=== PATIENT | female | born 1975 | race Caucasian/White ===

== ENCOUNTER → 2016-08-27 | Day surgery (SDC) | payer OTHER ==
[2016-08-24 10:51] VITALS: Ht 165.1 cm; Wt 95.0 kg
[~2016-08-27] VITALS: Ht 165.1 cm; Wt 95.0 kg
[~2016-08-27] MED LIST: AMPH10TA2 PO; BUPR-79 PO; LAMO200T38 PO; LIDOCAINE HCL 2% 2 ML VIAL (20MG/ML) ONE; MIDAZOLAM HCL 1 MG/ML 2ML VIAL ONE; PROPOFOL IV EMULSION 10 MG/ML 20 ML VIAL IV ONE; SODIUM CHLORIDE 0.9% 500ML 500 ML IV ONE; SUMA100T16 PO; TOPI50TA16 PO
--- NOTE | 2016-08-27 12:30 | Endo History and Physical ---
History & Physical Date of Service: Aug 27, 2016. Chief Complaint: Rectal bleeding Referring Physician: Dr. Patti Catherine History of Present Illness Rectal Bleeding Past Medical History Seizure Disorder, Cancer, Depression Past Surgical History Hx Cardiac Surgery: No Hx Internal Defibrillator: No Hx Pacemaker: No Hx Abdominal Surgery: Yes (, AZUL, UMBILICAL HERNIA, UTERINE ALBLATION) Hx of Implantable Prosthesis: No Hx Post-Op Nausea and Vomiting: No Hx Cancer Surgery: Yes (WIDE EXCISION OF MELANOMA ON BACK X2) Hx Thoracic Surgery: No Hx Orthopedic: Yes (RT SHOULDER ARTHROSCOPY) Hx Urinary Tract Surgery: No Family History Colon CA Social History Smoking Status: Never Smoker Hx Substance Use: No Hx Alcohol Use: Yes (OCASS) Allergies Coded Allergies: No Known Allergies (Verified , 08/24/16) Current Medications Reported Home Medications Medications Dose Route/Sig Max Daily Dose Days Date Category Adderall 10MG (Amphetamine-Dextroamphetamine 10MG) 1 Tab Tab 1 Tab PO BID 30 08/27/16 Reported Lamictal (Lamotrigine) 200 Mg Tab 200 Mg PO BID 07/04/15 Reported Wellbutrin Sr (Bupropion HCl) 150 Mg Ertab 150 Mg PO BID 06/29/13 Reported Topamax (Topiramate) 50 Mg Tab 100 Mg PO HS 06/29/13 Reported Topamax (Topiramate) 50 Mg Tab 50 Mg PO QAM 06/29/13 Reported Vital Signs Weight (Kilograms): 95 Height (Feet): 5 Height (Inches): 5 Date Time Temp Pulse Resp B/P Pulse Ox O2 Delivery O2 Flow Rate FiO2 08/27/16 10:00 37 88 16 135/86 95 Room Air Physical Exam General Appearance: WD/WN, no apparent distress Respiratory/Chest: Auscultation: breath sounds normal, no wheezing, no rhonchi Cardiovascular: Heart Auscultation: RRR, no murmurs Abdomen: Inspection & Palpation: soft, no tenderness, guarding & rebound, no masses Assessment and Plan Colonoscopy today.
--- NOTE | 2016-08-27 12:31 | Discharge Instructions ---
Endoscopy Patient Instructions Date / Procedure(s) Performed Aug 27, 2016. Colonoscopy Allergy Information Coded Allergies: No Known Allergies (Verified , 08/24/16) Discharge Date / Findings Aug 27, 2016. Normal Colonoscopy Medication Instructions Restart Stopped Medication(s): Resume all medications today. Take Citrucel daily. Provider Instructions Activity Restrictions - No exercising or heavy lifting for 24 hours. - Do not drink alcohol the day of the procedure. - Do not drive a car or operate machinery until the day after the procedure. - Do not make any important decisions or sign important papers in 24 hours after the procedure. Following Day: - Return to full activity which may include returning to work/school. Diet Start your diet with liquids and light foods (jello, soup, juice, toast). Then eat your usual diet if not nauseated. Treatment For Common After Affects For mild abdominal pain, bloating, or excessive gas: - Rest - Eat lightly - Lie on right side Follow-Up Information Follow-up with Dr. Patti Catherine as scheduled Anesthesia Information What You Should Know You have had a procedure that required some medicine to reduce anxiety and discomfort. This treatment is called moderate sedation. After receiving the treatment, you may be sleepy, but you will be able to breathe on your own. The effects of the treatment may last for several hours. Follow these instructions along with Activity/Diet recommendations noted above: * Do NOT do anything where dizziness or clumsiness would be dangerous. * Rest quietly at home today, then you can be up and about tomorrow. * Have a responsible person stay with you the rest of today. * You may have had an I.V. today. If so, you may take the dressing off later today. Recommendations Call your doctor if: * Trouble breathing * Continuous vomiting for more than 24 hours * Temperature above 101 degrees * Severe abdominal pain or bloating * Pain not relieved by pain medicine ordered * There is increased drainage or redness from any incision * A large amount of rectal bleeding greater than 2-3 tablespoons. (If you had a polyp/s removed or have hemorrhoids, a small amount of blood - from the rectum is to be expected.) * You have any unanswered questions or concerns. IN THE EVENT OF A SERIOUS EMERGENCY, GO TO THE NEAREST EMERGENCY ROOM Your discharge instructions were prepared by provider Sherwin Crespo. Patient Instructions Signature Page Adrienne Garza Patient (or Guardian) Signature/Date: I have read and understand the instructions given to me by my caregivers. Caregiver/RN/Doctor Signature/Date: The above-named patient and/or guardian has received patient instructions on this date. + Original Patient Signature Page (only) stays with chart. Please make copy for patient.
[2016-08-27 12:43] VITALS: BP 141/88; PULSE 68; O2SAT 99
--- NOTE | 2016-08-27 13:06 | Anesthesiology Progress Note ---
Anesthesia Post Op Note Date & Time Aug 27, 2016 at 13:05 Vital Signs Pain Intensity: 0 Vital Signs Past 12 Hours Date Time Temp Pulse Resp B/P Pulse Ox O2 Delivery O2 Flow Rate FiO2 08/27/16 12:43 68 16 141/88 99 Room Air 08/27/16 12:27 68 16 142/84 99 Room Air 08/27/16 12:12 69 16 142/81 99 Room Air 08/27/16 10:00 37 88 16 135/86 95 Room Air Notes Mental Status: alert / awake / arousable, participated in evaluation Pt Amnestic to Procedure: Yes Nausea / Vomiting: adequately controlled Pain: adequately controlled Airway Patency, RR, SpO2: stable & adequate BP & HR: stable & adequate Hydration State: stable & adequate Anesthetic Complications: no major complications apparent
--- NOTE | 2016-08-27 15:07 | GI REPORT ---
Procedure Date: 08/27/2016 11:52 AM Procedure: Colonoscopy Indications: Rectal bleeding Medicines: Monitored Anesthesia Care Complications: No immediate complications. Estimated blood loss: None. Estimated Blood Loss: Estimated blood loss: none. Procedure: Pre-Anesthesia Assessment: - Prior to the procedure, a History and Physical was performed, and patient medications, allergies and sensitivities were reviewed. The patient's tolerance of previous anesthesia was reviewed. - ASA Grade Assessment: III - A patient with severe systemic disease. After I obtained informed consent, the scope was passed under direct vision. Throughout the procedure, the patient's blood pressure, pulse, and oxygen saturations were monitored continuously. The On-site loaner was introduced through the anus and advanced to the terminal ileum, with identification of the appendiceal orifice and IC valve. The colonoscopy was performed with ease. The patient tolerated the procedure well. The quality of the bowel preparation was excellent. The bowel preparation used was split dose MIralax. Findings: The entire examined colon appeared normal. Impression: - The entire examined colon is normal to the terminal ileum with retroflexed views of the colon and terminal ileum. - No specimens collected. Recommendation: - Repeat colonoscopy in 10 years for screening purposes. - Discharge patient to home (with escort). Sherwin Crespo M.D. Sherwin Crespo MD 08/27/2016 12:20:35 PM This report has been signed electronically. Note Initiated On: 08/27/2016 11:52 AM I attest to the content of the Intraoperative Record and orders documented therein, exceptions below
== END | disposition home or self-care (01) ==
LOC: C.GI 09:40
PROVIDERS: ATTEND Internal Medicine Gastroenterology
DX: K62.5 Hemorrhage of anus and rectum (principal); F32.9 Major depressive disorder, single episode, unspecified; Z98.890 Other specified postprocedural states; G40.909 Epilepsy, unspecified, not intractable, without status epilepticus

== ENCOUNTER 2016-09-18 14:44 | Observation (INO) | payer OTHER ==
[~2016-09-18] VITALS: Ht 165.1 cm; Wt 96.1 kg
[~2016-09-18 14:44] MED LIST changes: -LIDOCAINE HCL 2% 2 ML VIAL (20MG/ML) ONE; -MIDAZOLAM HCL 1 MG/ML 2ML VIAL ONE; -PROPOFOL IV EMULSION 10 MG/ML 20 ML VIAL IV ONE; -SODIUM CHLORIDE 0.9% 500ML 500 ML IV ONE; -SUMA100T16 PO
[2016-09-18] MEDS ORDERED: ALUMINUM/MAGNESIUM SUSP 30 ML UDC PO STA (15:04)
[2016-09-18] MEDS ORDERED: SODIUM CHLORIDE 0.9% 1000ML 1,000 ML IV STA ×2 (15:04→19:32)
[2016-09-18] MEDS ORDERED: ONDANSETRON INJ 2 MG/ML 2 ML VIAL IV STA (15:04)
--- NOTE | 2016-09-18 15:22 | EMERGENCY ROOM VISIT NOTE ---
History Report prepared by Arnold: Chelita Willoughby Under the Supervision of: Dr. Sherwin Alvarez D.O. First contact with patient: 14:54 Chief Complaint: ABDOMINAL PAIN Stated Complaint: ABD PAIN/ DIZZINESS History of Present Illness The patient is a 41 year old female who presents to the Emergency Room via EMS with complaints of severe but improved epigastric abdominal pain starting a few minutes ago. She works at an [employer] office where she had a sudden onset of her pain. She was severely diaphoretic and lightheaded. She was given Aspirin and Nitro at her workplace. She was also given Zofran by EMS in route to the Emergency Room. She denies chest pain, shortness of breath, lower abdominal pain , pain radiation to back, blood in urine/stool, urinary symptoms, or any other complaints. She had a colonoscopy a few days ago for blood in stool. She no longer has any blood in stool. She has a history of cholecystectomy. She has a family history myocardial infarction. Source of History: patient Onset: a few minutes ago Position: abdomen (epigastric) Symptom Intensity: severe Timing: other (improved) Modifying Factors (Relieving): other (Aspirin, Nitro, Zofran) Associated Symptoms: No SOB, No abdominal pain, No chest pain, No urinary symptoms Review of Systems See HPI for pertinent positives & negatives. A total of 10 systems reviewed and were otherwise negative. Past Medical & Surgical Medical Problems: (1) Chest pain (2) Migraines (3) Wide excision of melanoma Surgical Problems: (1) History of cholecystectomy (2) History of hernia repair Family History FHx: cancer FHx: diabetes FHx: gallbladder disease FHx: heart disease FHx: hypertension FHx: kidney disease/stones Social History Smoking Status: Never Smoker Alcohol Use: none Drug Use: none Marital Status: Housing Status: lives with family Occupation Status: employed Current/Historical Medications Scheduled Amphetamine-Dextroamphetamine 10MG (Adderall 10MG), 1 TAB PO BID Bupropion (Wellbutrin Sr), 150 MG PO BID Lamotrigine (Lamictal), 200 MG PO BID Sumatriptan Succinate (Imitrex), 100 MG PO PRN Topiramate (Topamax), 50 MG PO QAM Topiramate (Topamax), 100 MG PO HS Allergies Coded Allergies: No Known Allergies (Verified , 08/24/16) Physical Exam Vital Signs Date Time Temp Pulse Resp B/P Pulse Ox O2 Delivery O2 Flow Rate FiO2 09/18/16 20:49 76 18 132/86 96 Room Air 09/18/16 20:37 98 Room Air 09/18/16 18:57 72 18 132/82 98 Room Air 09/18/16 17:14 72 16 121/75 96 Room Air 09/18/16 15:29 72 19 09/18/16 15:28 112/82 09/18/16 15:14 71 14 96 09/18/16 15:00 81 09/18/16 14:53 116/87 09/18/16 14:51 36.4 72 14 116/87 95 Room Air Physical Exam GENERAL: Patient is awake, alert, and in no acute distress. Patient is resting comfortably and showing no signs of anxiety EYES: The conjunctivae are clear. The pupils are round and reactive. EARS, NOSE, MOUTH AND THROAT: The nose is without any evidence of any deformity. Mucous membranes are moist tongue is midline NECK: The neck is nontender and supple. RESPIRATORY: Normal respiratory effort is noted there is no evidence of wheezing rhonchi or rales CARDIOVASCULAR: Regular rate and rhythm noted there no murmurs rubs or gallops normal S1 normal S2 GASTROINTESTINAL: The abdomen is soft. Bowel sounds are present in all quadrants. Significant tenderness in the right upper quadrant of abdomen. There is no specific guarding or rigidity noted. MUSCULOSKELETAL/EXTREMITIES: There is no evidence of gross deformity full range of motion is noted in the hips and shoulders SKIN: There is no obvious evidence of any rash. There are no petechiae, pallor or cyanosis noted. NEUROLOGIC: Patient is awake alert and oriented x3 Medical Decision & Procedures ER Provider Diagnostic Interpretation: CT the abdomen and pelvis was obtained in the emergency Department CT ABD/PELVIS IV AND ORAL CONT CLINICAL HISTORY: Upper abdominal pain COMPARISON STUDY: 04/06/2016 TECHNIQUE: Following the IV administration of 115 mL of Optiray-320, CT scan of the abdomen and pelvis was performed from the lung bases to the proximal femurs. Images are reviewed in the axial, sagittal, and coronal planes. IV contrast was administered without complication. CT DOSE: 873.53 mGy.cm FINDINGS: Lower chest: The heart is normal in size and configuration, without pericardial effusion. The lung bases and pleural spaces are clear. Liver: The contrast-enhanced liver is normal in size, contour, and attenuation. There is no intrahepatic biliary ductal dilatation. The hepatic veins and portal veins are patent. Gallbladder: Surgically absent Spleen: Normal in size and attenuation. Pancreas: Unremarkable. Adrenal glands: Unremarkable. Kidneys: No solid renal masses are visualized. There are nonobstructing lower pole left renal calculi measuring up to 3 mm in diameter. There is a 4 mm right renal hypodensity, likely representing a cyst. Bowel: There are no transition zones indicate bowel obstruction. The appendix is normal. There is no acute diverticulitis. There is minimal bowel wall thickening involving multiple small bowel loops consistent with a mild nonspecific enteritis. Peritoneum: No free air is visualized. There is low volume ascites. Vasculature: The abdominal aorta is normal in course and caliber. Adenopathy: None. Pelvic viscera: The bladder, and pelvic viscera are unremarkable. Skeletal structures: There is bilateral L5 spondylolysis IMPRESSION: 1. No evidence of bowel obstruction. No evidence of free air 2. Surgically absent gallbladder 3. Left-sided nephrolithiasis 4. Mild small bowel wall thickening consistent with a nonspecific enteritis 5. Low volume ascites 6. Normal appendix Electronically signed by: Lamberto Colorado M.D. 09/18/2016 7:24 PM Dictated Date/Time: 09/18/2016 7:20 PM Plan x-rays of the chest abdomen and pelvis were obtained in the emergency department. ABDOMEN 2VIEW W/PA CHEST RTN CLINICAL HISTORY: Generalized abdominal pain COMPARISON STUDY: Chest x-ray dated 02/13/2013 FINDINGS: The erect chest reveals no free intraperitoneal air. There is no focal pulmonary consolidation. Erect and supine views the abdomen reveal surgical clips within the right upper quadrant consistent with a prior cholecystectomy. There are scattered colonic air-fluid levels. There are no transition zones indicate bowel obstruction. There is a suspected 2 mm lower pole left renal calculus. There is a right pelvic basin calcification, likely representing a phlebolith. IMPRESSION: 1. Scattered colonic air-fluid levels 2. No evidence of bowel obstruction. No evidence of free air 3. Left-sided nephrolithiasis Electronically signed by: Lamberto Colorado M.D. 09/18/2016 4:22 PM Dictated Date/Time: 09/18/2016 4:20 PM Ultrasound of the right upper quadrant was obtained in the emergency department. The report was reviewed. BILIARY ULTRASOUND CLINICAL HISTORY: Right-sided abdominal pain COMPARISON STUDY: CT scan dated 04/06/2016 FINDINGS: The pancreas appears sonographically normal. The gallbladder is surgically absent. There is no ductal dilatation. The common bile duct measures 5 mm. No focal hepatic masses are visualized. There is slight increased hepatic echogenicity. Mild hepatic steatosis cannot be excluded. There is no right-sided hydronephrosis. IMPRESSION: 1. Surgically absent gallbladder 2. No pancreatic or hepatic masses identified 3. No ductal dilatation. Electronically signed by: Lamberto Colorado M.D. 09/18/2016 4:11 PM Dictated Date/Time: 09/18/2016 4:10 PM Laboratory Results Test 09/18/16 15:26 09/18/16 17:45 Prothrombin Time 10.4 SECONDS (9.0-12.0) Prothromb Time International Ratio 1.0 (0.9-1.1) Activated Partial Thromboplast Time 22.2 SECONDS (21.0-31.0) Partial Thromboplastin Ratio 0.9 Magnesium Level 2.3 mg/dl (1.8-2.4) Total Bilirubin 0.4 mg/dl (0.2-1) Direct Bilirubin < 0.1 mg/dl (0-0.2) Aspartate Amino Transf (AST/SGOT) 15 U/L (15-37) Alanine Aminotransferase (ALT/SGPT) 23 U/L (12-78) Alkaline Phosphatase 96 U/L (45-117) Total Protein 7.4 gm/dl (6.4-8.2) Albumin 4.0 gm/dl (3.4-5.0) Lipase 117 U/L (73-393) Thyroid Stimulating Hormone (TSH) 1.750 uIu/ml (0.300-4.500) Human Chorionic Gonadotropin, Qual NEG (NEG) Urine Color DK YELLOW Urine Appearance CLEAR (CLEAR) Urine pH 6.0 (4.5-7.5) Urine Specific [place] 1.029 (1.000-1.030) Urine Protein NEG (NEG) Urine Glucose (UA) NEG (NEG) Urine Ketones TRACE (NEG) Urine Occult Blood 1+ (NEG) Urine Nitrite NEG (NEG) Urine Bilirubin NEG (NEG) Urine Urobilinogen NEG (NEG) Urine Leukocyte Esterase TRACE (NEG) Urine WBC (Auto) 5-10 /hpf (0-5) Urine RBC (Auto) 0-4 /hpf (0-4) Urine Hyaline Casts (Auto) 5-10 /lpf (0-5) Urine Epithelial Cells (Auto) >30 /lpf (0-5) Urine Bacteria (Auto) NEG (NEG) Medications Administered Medications (Trade) Dose Ordered Sig/Ugo Route Start Time Stop Time Status Last Admin Dose Admin Al Hydroxide/Mg Hydroxide 30 ml 30 ml NOW STAT PO 09/18/16 15:04 09/18/16 15:06 DC 09/18/16 15:13 30 ML Sodium Chloride (Nss 1000ml) 1,000 ml @ 999 mls/hr Q1H1M STAT IV 09/18/16 15:04 09/18/16 16:04 DC 09/18/16 15:16 999 MLS/HR Ondansetron HCl 4 mg 4 mg NOW STAT IV 09/18/16 15:04 09/18/16 15:06 DC 09/18/16 15:13 4 MG Pantoprazole Sodium 40 mg/ Syringe 10 ml @ 5 mls/min NOW ONCE IV 09/18/16 19:45 09/18/16 19:46 DC 09/18/16 19:56 5 MLS/MIN Sodium Chloride (Nss 1000ml) 1,000 ml @ 250 mls/hr Q4H STAT IV 09/18/16 19:32 09/18/16 20:00 DC 09/18/16 19:57 250 MLS/HR Potassium Chloride 40 meq 40 meq NOW STAT PO 09/18/16 19:57 09/18/16 19:59 DC 09/18/16 20:07 40 MEQ Lactated Ringer's (Lr 1000ml) 1,000 ml @ 200 mls/hr Q5H IV 09/18/16 20:00 09/18/16 21:47 DC 09/18/16 20:08 200 MLS/HR ECG Indication: abdominal pain Rate (beats per minute): 75 Rhythm: normal sinus Findings: T-wave inversion (Anterior), no ectopy Comparison ECG Date: February 13, 2013 Change: no significant change ED Course 1454: The patient was evaluated in room C06. A complete history and physical examination were performed. Medical Decision Prior records/ancillary studies reviewed. Triage Nursing notes reviewed. The patient's history was concerning for abdominal pain. Differential diagnosis: Etiologies such as appendicitis, diverticulitis, PUD, biliary pathology, UTI, pancreatitis, obstruction, mesenteric ischemia, aortic pathology, infections, inflammatory bowel disease, renal colic, as well as others were entertained. The patient is a 41-year-old female who presented to the emergency department for evaluation of chest pain and epigastric pain. The patient had an acute onset of epigastric pain while she was at work. She was very diaphoretic with the onset of the pain in her colleagues thought that she was having an acute coronary event. She was given aspirin and nitroglycerin prior to arrival. She arrived to the emergency Department significantly improved but she appeared to have reproducible pain in the epigastric region in the right upper quadrant. The patient was treated with IV fluids and IV antiemetics. She was also given Maalox and ordered Protonix in the emergency department. She did not wish to have any pain medication. She was reevaluated multiple times. The patient was found have an elevated white blood cell count. Her x-rays and ultrasound did not reveal definite cause for her discomfort so a CT the abdomen and pelvis was ordered. I discussed the patient's laboratory and radiographic studies with her. Given her elevated white blood cell count I'm not comfortable with her following up as an outpatient for this reason I discussed her case with the on- call [facility] hospitalist group. They've agreed to evaluate the patient in the emergency department for further management and disposition. Consults Time Called: 1934 Consulting Physician: Dr Robert Parks Hospitalist Returned Call: 1939 Impression Primary Impression: Epigastric abdominal pain Additional Impressions: Elevated white blood cell count Ascites Scribe Attestation The scribe's documentation has been prepared under my direction and personally reviewed by me in its entirety. I confirm that the note above accurately reflects all work, treatment, procedures, and medical decision making performed by me. Departure Information Referrals Patti Catherine D.O. (PCP) Patient Instructions [facility] Problem Qualifiers Additional Impressions: Elevated white blood cell count Leukocytosis type: unspecified Qualified Codes: D72.829 - Elevated white blood cell count, unspecified Ascites Ascites type: other type Qualified Codes: R18.8 - Other ascites
[2016-09-18 15:58] LABS: PARTIAL THROMBOPLASTIN RATIO 0.9; PROTHROMBIN TIME (PATIENT) 10.4 SECONDS (9.0-12.0)
[2016-09-18] MEDS ORDERED: SUMA100T16 PO (16:00)
[2016-09-18 16:01] LABS: BLOOD UREA NITROGEN 11 mg/dl (7-18); CALCIUM 9.2 mg/dl (8.5-10.1); CARBON DIOXIDE 23 mmol/L (21-32); CHLORIDE 106 mmol/L (98-107); GLUCOSE 98 mg/dl (70-99); POTASSIUM 3.1 mmol/L (3.5-5.1); SODIUM 140 mmol/L (136-145)
[2016-09-18 16:06] LABS: ALKALINE PHOSPHATASE 96 U/L (45-117); ALT/SGPT 23 U/L (12-78); AST/SGOT 15 U/L (15-37)
--- NOTE | 2016-09-18 16:13 | DIAGNOSTIC IMAGING REPORT ---
BILIARY ULTRASOUND CLINICAL HISTORY: Right-sided abdominal pain COMPARISON STUDY: CT scan dated 04/06/2016 FINDINGS: The pancreas appears sonographically normal. The gallbladder is surgically absent. There is no ductal dilatation. The common bile duct measures 5 mm. No focal hepatic masses are visualized. There is slight increased hepatic echogenicity. Mild hepatic steatosis cannot be excluded. There is no right-sided hydronephrosis. IMPRESSION: 1. Surgically absent gallbladder 2. No pancreatic or hepatic masses identified 3. No ductal dilatation. Electronically signed by: Lamberto Colorado M.D. 09/18/2016 4:11 PM Dictated Date/Time: 09/18/2016 4:10 PM
[2016-09-18 16:19] LABS: PREG INTERNAL NEGATIVE QC NEG CLEAR BACKGROUND; PREG INTERNAL POSITIVE QC POS CONTROL LINE
--- NOTE | 2016-09-18 16:23 | DIAGNOSTIC IMAGING REPORT ---
ABDOMEN 2VIEW W/PA CHEST RTN CLINICAL HISTORY: Generalized abdominal pain COMPARISON STUDY: Chest x-ray dated 02/13/2013 FINDINGS: The erect chest reveals no free intraperitoneal air. There is no focal pulmonary consolidation. Erect and supine views the abdomen reveal surgical clips within the right upper quadrant consistent with a prior cholecystectomy. There are scattered colonic air-fluid levels. There are no transition zones indicate bowel obstruction. There is a suspected 2 mm lower pole left renal calculus. There is a right pelvic basin calcification, likely representing a phlebolith. IMPRESSION: 1. Scattered colonic air-fluid levels 2. No evidence of bowel obstruction. No evidence of free air 3. Left-sided nephrolithiasis Electronically signed by: Lamberto Colorado M.D. 09/18/2016 4:22 PM Dictated Date/Time: 09/18/2016 4:20 PM
[2016-09-18 17:08] LABS: BASO ABS # 0.01 K/uL (0-0.2); COMPLETE YES; EOS % 0.3 %; HEMATOCRIT 45.8 % (37-47); IG% 0.3 %; LYMPH % 7.2 %; LYMPH ABS # 1.66 K/uL (1.2-3.4); MEAN CELL VOLUME 90.9 fL (80-100); MEAN CORPUSCULAR HEMOGLOBIN 31.2 pg (25-34); MEAN CORPUSCULAR HGB CONC 34.3 g/dl (32-36); MEAN PLATELET VOLUME 8.8 fL (7.4-10.4); MONO % 6.2 %; PLATELET COUNT 284 K/uL (130-400); RED BLOOD COUNT 5.04 M/uL (4.2-5.4); WHITE BLOOD COUNT 23.04 K/uL (4.8-10.8)
[2016-09-18] MEDS ORDERED: OPTIRAY 320 IV PRN (17:30)
[2016-09-18 18:07] LABS: URINE APPEARANCE CLEAR (CLEAR); URINE COLOR DK YELLOW; URINE EPITHELIAL CELL AUTO >30 /lpf (0-5); URINE NITRITE NEG (NEG); URINE SPECIFIC GRAVITY 1.029 (1.000-1.030); UROBILINOGEN NEG (NEG)
[2016-09-18 18:12] LABS: MANUAL MICROSCOPIC REQUIRED? NO; REVIEW REQ? NO; URINE BILIRUBIN NEG (NEG)
--- NOTE | 2016-09-18 19:25 | DIAGNOSTIC IMAGING REPORT ---
CT ABD/PELVIS IV AND ORAL CONT CLINICAL HISTORY: Upper abdominal pain COMPARISON STUDY: 04/06/2016 TECHNIQUE: Following the IV administration of 115 mL of Optiray-320, CT scan of the abdomen and pelvis was performed from the lung bases to the proximal femurs. Images are reviewed in the axial, sagittal, and coronal planes. IV contrast was administered without complication. CT DOSE: 873.53 mGy.cm FINDINGS: Lower chest: The heart is normal in size and configuration, without pericardial effusion. The lung bases and pleural spaces are clear. Liver: The contrast-enhanced liver is normal in size, contour, and attenuation. There is no intrahepatic biliary ductal dilatation. The hepatic veins and portal veins are patent. Gallbladder: Surgically absent Spleen: Normal in size and attenuation. Pancreas: Unremarkable. Adrenal glands: Unremarkable. Kidneys: No solid renal masses are visualized. There are nonobstructing lower pole left renal calculi measuring up to 3 mm in diameter. There is a 4 mm right renal hypodensity, likely representing a cyst. Bowel: There are no transition zones indicate bowel obstruction. The appendix is normal. There is no acute diverticulitis. There is minimal bowel wall thickening involving multiple small bowel loops consistent with a mild nonspecific enteritis. Peritoneum: No free air is visualized. There is low volume ascites. Vasculature: The abdominal aorta is normal in course and caliber. Adenopathy: None. Pelvic viscera: The bladder, and pelvic viscera are unremarkable. Skeletal structures: There is bilateral L5 spondylolysis IMPRESSION: 1. No evidence of bowel obstruction. No evidence of free air 2. Surgically absent gallbladder 3. Left-sided nephrolithiasis 4. Mild small bowel wall thickening consistent with a nonspecific enteritis 5. Low volume ascites 6. Normal appendix Electronically signed by: Lamberto Colorado M.D. 09/18/2016 7:24 PM Dictated Date/Time: 09/18/2016 7:20 PM
[2016-09-18] MEDS ORDERED: PANTOprazole INJ 40 MG in SYRINGE 0 ML IV ONE (19:45)
[2016-09-18] MEDS ORDERED: POTASSIUM CHLORIDE 10 MEQ TABCR PO STA (19:57)
[2016-09-18] MEDS ORDERED: LACTATED RINGER'S 1000ML 1,000 ML IV SCH (20:00)
[2016-09-18 20:24] LABS: MAGNESIUM 2.3 mg/dl (1.8-2.4)
[2016-09-18 20:37] VITALS: O2SAT 98; Ht 165.1 cm; Wt 96.1 kg
[2016-09-18] MEDS ORDERED: BuPROPion SR 150 MG TABCR PO ONE (21:42)
[2016-09-18] MEDS ORDERED: TOPIRAMATE 100 MG TAB PO ONE (21:42)
[2016-09-18 21:44] VITALS: O2SAT 96
[2016-09-18] MEDS ORDERED: ACETAMINOPHEN 325 MG TAB PO PRN (21:45)
[2016-09-18] MEDS ORDERED: PROMETHAZINE HCL INJ 12.5 MG in SODIUM CHLORIDE 0.9% 50ML 50 ML IV PRN (21:45)
[2016-09-18] MEDS ORDERED: NITROGLYCERIN 0.4 MG SL PER TAB CHARGE SL PRN (21:45)
[2016-09-18] MEDS ORDERED: LACTATED RINGER'S 1000ML 1,000 ML IV ONE (21:45)
[2016-09-18 22:10] VITALS: BP 128/86; PULSE 74; TEMP 36.7; O2SAT 95
[2016-09-18] MEDS ORDERED: IV FLUIDS COMPLETED PRN (23:15)
[2016-09-19] MEDS ORDERED: CALCIUM CARBONATE 500 MG CHEWABLE PO PRN (02:45)
[2016-09-19] MEDS ORDERED: LACTATED RINGER'S 1000ML 1,000 ML IV ONE (03:00)
[2016-09-19 03:21] VITALS: BP 118/80; PULSE 69; TEMP 36.6; O2SAT 98
[2016-09-19 06:01] LABS: BASO % 0.1 %; BASO ABS # 0.01 K/uL (0-0.2); COMPLETE YES; IG% 0.3 %; LYMPH % 34.4 %; LYMPH ABS # 2.38 K/uL (1.2-3.4); MEAN CELL VOLUME 92.6 fL (80-100); MEAN CORPUSCULAR HEMOGLOBIN 31.1 pg (25-34); MEAN CORPUSCULAR HGB CONC 33.6 g/dl (32-36); MEAN PLATELET VOLUME 9.1 fL (7.4-10.4); MONO % 7.2 %; PLATELET COUNT 262 K/uL (130-400); RED BLOOD COUNT 4.21 M/uL (4.2-5.4); WHITE BLOOD COUNT 6.92 K/uL (4.8-10.8)
[2016-09-19 06:31] LABS: BLOOD UREA NITROGEN 8 mg/dl (7-18); BUN/CREATININE RATIO 8.2 (10-20); CARBON DIOXIDE 25 mmol/L (21-32); CHLORIDE 112 mmol/L (98-107); CREATININE 0.92 mg/dl (0.60-1.20); GLUCOSE 70 mg/dl (70-99); POTASSIUM 3.8 mmol/L (3.5-5.1); SODIUM 143 mmol/L (136-145)
[2016-09-19 08:19] VITALS: BP 110/72; PULSE 70; TEMP 36.8; O2SAT 99
[2016-09-19] MEDS: BuPROPion SR 150 MG TABCR PO SCH ×2 (08:21→20:24)
[2016-09-19] MEDS: TOPIRAMATE 25 MG TAB PO SCH (08:21)
[2016-09-19] MEDS: AMPHETAMINE ASP/SULF/DEXTRAMPH 10 MG TAB PO SCH ×2 (08:22→20:33)
[2016-09-19] MEDS: OXYCODONE/ACETAMINOPHEN 5-325 TAB PO PRN ×3 (08:27→20:22)
--- NOTE | 2016-09-19 10:25 | HISTORY & PHYSICAL EXAMINATION ---
DATE OF ADMISSION: 09/18/2016 PRIMARY CARE DOCTOR: Dr. Catherine. Hx obtained from px and records. CHIEF COMPLAINT: Chest pain, abdominal pain. HISTORY OF PRESENT ILLNESS: Medical history significant for migraine, seizure disorder, history of intracranial hemorrhage sp surgery, melanoma sp surgery, restless legs syndrome, anxiety, mood disorder, endometriosis. Recent confinement 2011 for syncope, cellulitis, left foot. Patient was at work at the [employer] [employer] [facility] [place] [employer] [facility] yesterday when she had achy epigastric discomfort going to her chest. Ham sandwich for lunch. She could not breathe, some nausea. no emesis. Some relief with Aspirin and Nitroglycerin given at the office. Px comfortable after GI cocktail given in the ER. Loose stools noted at the ER. MEDICAL HISTORY: As above. SURGERIES: gynecologic procedure, shoulder surgery, tonsillectomy, dental surgery, cholecystectomy, section, hernia repair, melanoma surgery, breast procedure, craniotomy. HOME MEDICATIONS: Include sumatriptan, Adderall. lamictal, topamax. ALLERGIES: No known drug allergies. FAMILY HISTORY: Heart disease. PERSONAL AND SOCIAL HISTORY: Nonsmoker. no ETOH intake, [employer] clinic nurse. REVIEW OF SYSTEMS: As per HPI, all other ROS negative. PHYSICAL EXAMINATION: VITAL SIGNS: Blood pressure was noted to be 130/86, pulse 90, respiratory rate 18 T 37 O2 sats 98RA. GENERAL: Slightly anxious, obese, no respiratory distress. SKIN: Normal color. HEENT: [place] palpebral conjunctivae. Dry mucosa. NECK: No JVD. supple CHEST: Clear to auscultation. HEART: Regular rate and rhythm. ABDOMEN: Minimal epigastric tenderness. EXTREMITIES: No edema. no tenderness NEUROLOGIC: No gross focality. LABS: white cell count 23, hemoglobin 15, platelets 284. Sodium 140, potassium 3.1, chloride 106, CO2 of 28, BUN 11, creatinine 1.2. LFTs, lipase normal. trop 0 CT abdomen and pelvis showed enteritis. Chest/abd x-ray showed no infiltrate, no bowel obstruction. Gallbladder ultrasound absent gallbladder. EKG TWI septal leads. ASSESSMENT: 1. Atypical chest pain likely secondary to GI upset. ro ACS 2. diarrhea poss 2 to PO contrast intake ro cdif 3. History of intracranial hemorrhage sp surgery 4. seizure disorder, stable on medications 5. attention deficit post ICH on Adderall 6. mood disorder. stable on meds 7. Hypokalemia secondary to gastrointestinal upset/diarrhea PLAN: Observation PCU. Follow troponin. 2-D echo. re cp Antacid p.r.n. stool cdif Replace potassium. Home in AM if patient comfortable and espino unremarkable. DVT prophylaxis, SCDs. RE hx ICH Full code. MTDD
[2016-09-19 12:49] VITALS: BP 125/84; PULSE 78; TEMP 36.8; O2SAT 96
[2016-09-19] MEDS: ONDANSETRON INJ 2 MG/ML 2 ML VIAL IV PRN ×2 (13:53→20:22)
[2016-09-19 15:51] VITALS: BP 118/78; PULSE 71; TEMP 36.9; O2SAT 97
[2016-09-19] MEDS ORDERED: NURSING VERBAL MED ORDER ONE (18:30)
[2016-09-19] MEDS: MoRPHine SULFATE 4 MG/ML 1 ML CARP\\VIAL IV PRN ×2 (18:44→23:19)
[2016-09-19] MEDS ORDERED: LACTATED RINGER'S 1000ML 1,000 ML IV SCH (18:45)
[2016-09-19 19:20] VITALS: BP 107/70; PULSE 76; TEMP 36.7; O2SAT 97
--- NOTE | 2016-09-19 19:57 | Progress Note ---
Medicine Progress Note Date & Time of Visit: Sep 19, 2016 at 19:43. Subjective Pt was seen and examined Lying in bed with no distress Pt said that she is having tenderness in her abdomen she also said that she is having headache she does not have any chest pain Pt is very anxious denies any sob, palpitation, dizziness Objective Last 8 Hrs Date Time Temp Pulse Resp B/P Pulse Ox O2 Delivery O2 Flow Rate FiO2 09/19/16 16:02 Room Air 09/19/16 15:51 36.9 71 18 118/78 97 Room Air 09/19/16 12:49 36.8 78 18 125/84 96 Room Air 09/19/16 12:05 Room Air Physical Exam: General- No acute distress Head- atraumatic Eyes- PERRL, EOMI ENT- oropharynx clear Neck- supple, no JVD Lungs- clear to auscultation, no wheezing Heart- regular rhythm; no murmur Abdomen- normal bowel sounds, soft, +tender with palpation Extremities- no calf tenderness Neuro- alert, oriented x 3; PERRL, EOMI; no facial palsy; no dysarthria Skin- warm & dry Laboratory Results: Last 24 Hours Test 09/18/16 20:31 09/19/16 05:05 Troponin I < 0.015 ng/ml < 0.015 ng/ml White Blood Count 6.92 K/uL Red Blood Count 4.21 M/uL Hemoglobin 13.1 g/dL Hematocrit 39.0 % Mean Corpuscular Volume 92.6 fL Mean Corpuscular Hemoglobin 31.1 pg Mean Corpuscular Hemoglobin Concent 33.6 g/dl Platelet Count 262 K/uL Mean Platelet Volume 9.1 fL Neutrophils (%) (Auto) 56.0 % Lymphocytes (%) (Auto) 34.4 % Monocytes (%) (Auto) 7.2 % Eosinophils (%) (Auto) 2.0 % Basophils (%) (Auto) 0.1 % Neutrophils # (Auto) 3.87 K/uL Lymphocytes # (Auto) 2.38 K/uL Monocytes # (Auto) 0.50 K/uL Eosinophils # (Auto) 0.14 K/uL Basophils # (Auto) 0.01 K/uL RDW Standard Deviation 45.2 fL RDW Coefficient of Variation 13.4 % Immature Granulocyte % (Auto) 0.3 % Immature Granulocyte # (Auto) 0.02 K/uL Sodium Level 143 mmol/L Potassium Level 3.8 mmol/L Chloride Level 112 mmol/L Carbon Dioxide Level 25 mmol/L Anion Gap 6.0 mmol/L Blood Urea Nitrogen 8 mg/dl Creatinine 0.92 mg/dl Est Creatinine Clear Calc Drug Dose 93.6 ml/min Estimated GFR () 90.3 Estimated GFR (Non- 77.9 BUN/Creatinine Ratio 8.2 Random Glucose 70 mg/dl Calcium Level 8.0 mg/dl Assessment & Plan Chest pain Mostly atypical possible related to GI etiology All 3 sets of troponin negative No chest pain currently Echo-pending Headache hx of intracranial hemorrhage s/p surgery will get a CT head without contrast Diarrhea Possible related to contrast resolved Hypokalemia possible related to diarrhea K 3.8 monitor bmp Leukocytosis WBC on admission 23K mostly reactive WBC trending to 6K today (normal) CT abd showed Mild small bowel wall thickening consistent with a nonspecific enteritis CXR negative Urine cx negative Seizure disorder no seizure activities stable on medications Attention deficit post ICH on Adderall Mood disorder. stable Current Inpatient Medications: Current Inpatient Medications Medications (Trade) Dose Ordered Sig/Ugo Route Start Time Stop Time Status Last Admin Dose Admin Ioversol (Optiray 320) 100 ml UD PRN IV 09/18/16 17:30 09/22/16 17:29 Acetaminophen (Tylenol Tab) 650 mg Q4H PRN PO 09/18/16 21:45 10/18/16 21:44 Nitroglycerin (Nitrostat Tab) 0.4 mg UD PRN SL 09/18/16 21:45 10/18/16 21:44 Ondansetron HCl 4 mg 4 mg Q6H PRN IV 09/18/16 21:45 10/18/16 21:44 09/19/16 13:53 4 MG Promethazine HCl/ Sodium Chloride (Phenergan Inj/ Nss 50ml) 50.5 ml @ 204 mls/hr Q6H PRN IV 09/18/16 21:45 10/18/16 21:44 Oxycodone/ Acetaminophen (Percocet 5-325mg Tab) 1 tab Q6H PRN PO 09/18/16 21:45 10/02/16 21:44 09/19/16 13:54 1 TAB Morphine Sulfate (MoRPHine SULFATE INJ) 4 mg Q3H PRN IV 09/18/16 21:45 10/02/16 21:44 09/19/16 18:44 4 MG Bupropion HCl (Wellbutrin-Sr Tab) 150 mg BID PO 09/19/16 09:00 10/19/16 08:59 09/19/16 08:21 150 MG Lamotrigine (Lamictal Tab) 200 mg BID PO 09/19/16 09:00 10/19/16 08:59 09/19/16 08:22 200 MG Topiramate (Topamax Tab) 50 mg QAM PO 09/19/16 09:00 10/19/16 08:59 09/19/16 08:21 50 MG Topiramate (Topamax Tab) 100 mg HS PO 09/19/16 21:00 10/19/16 20:59 Amphetamine Aspartate/ Amphetam Sulf (Amphetamine Aspartate/Amph Sulf/Dextramphet) 10 mg BID PO 09/19/16 09:00 10/19/16 08:59 Miscellaneous (Iv Fluids Completed) 1 ea PRN PRN N/A 09/18/16 23:15 09/18/17 23:14 Calcium Carbonate 500 mg 500 mg Q6H PRN PO 09/19/16 02:45 10/19/16 02:44 Lactated Ringer's (Lr 1000ml) 1,000 ml @ 75 mls/hr [id number] IV 09/19/16 18:45 10/19/16 18:44 09/19/16 18:54 75 MLS/HR
--- NOTE | 2016-09-19 20:34 | DIAGNOSTIC IMAGING REPORT ---
CT OF THE HEAD WITHOUT CONTRAST CLINICAL HISTORY: Headache. History of intracranial hemorrhage and melanoma. COMPARISON STUDY: Head CT and MRI of the brain June 29, 2013. CT DOSE: 537.48 mGy.cm TECHNIQUE: Helical axial images of the head were obtained without IV contrast. Automated exposure control was utilized for the study. FINDINGS: There are findings consistent with an interval right sided craniotomy. No acute intracranial hemorrhage, midline shift or mass effect is present. Ventricular system is normal. Basilar cisterns are patent. There are no extra-axial collections. Ortiz-white differentiation is maintained. There are no findings to suggest acute dural sinus thrombosis or acute territorial infarct. No calvarial fracture is identified. Visualized portions of the sinuses and mastoid air cells are clear. IMPRESSION: No acute intracranial findings. Electronically signed by: Radhames Simms M.D. 09/19/2016 8:32 PM Dictated Date/Time: 09/19/2016 8:28 PM
[2016-09-19] MEDS ORDERED: TOPIRAMATE 100 MG TAB PO SCH (21:00)
[2016-09-19 23:31] VITALS: BP 109/64; PULSE 74; TEMP 36.7; O2SAT 96
[2016-09-20 04:00] VITALS: BP 97/60; PULSE 69; TEMP 36.5; O2SAT 98
[2016-09-20] MEDS: MoRPHine SULFATE 4 MG/ML 1 ML CARP\\VIAL IV PRN (04:33)
[2016-09-20 06:41] LABS: HEMATOCRIT 37.7 % (37-47); MEAN CELL VOLUME 92.2 fL (80-100); MEAN CORPUSCULAR HEMOGLOBIN 31.1 pg (25-34); MEAN CORPUSCULAR HGB CONC 33.7 g/dl (32-36); MEAN PLATELET VOLUME 8.4 fL (7.4-10.4); PLATELET COUNT 233 K/uL (130-400); RED BLOOD COUNT 4.09 M/uL (4.2-5.4); WHITE BLOOD COUNT 4.78 K/uL (4.8-10.8)
[2016-09-20 07:11] LABS: BUN/CREATININE RATIO 4.3 (10-20); CREATININE 0.92 mg/dl (0.60-1.20); POTASSIUM 3.5 mmol/L (3.5-5.1)
[2016-09-20 07:52] VITALS: BP 98/61; TEMP 37; O2SAT 98
[2016-09-20] MEDS: TOPIRAMATE 25 MG TAB PO SCH (08:04)
[2016-09-20] MEDS: AMPHETAMINE ASP/SULF/DEXTRAMPH 10 MG TAB PO SCH (08:05)
[2016-09-20] MEDS: BuPROPion SR 150 MG TABCR PO SCH (08:05)
[2016-09-20] MEDS: ONDANSETRON INJ 2 MG/ML 2 ML VIAL IV PRN (10:10)
[2016-09-20 11:36] VITALS: BP 125/85; PULSE 69; TEMP 36.9; O2SAT 97
[2016-09-20] MEDS ORDERED: SUMATRIPTAN SUCC TAB 100 MG TAB PO PRN (13:00)
--- NOTE | 2016-09-20 13:01 | Progress Note ---
Medicine Progress Note Date & Time of Visit: Sep 20, 2016 at 12:36. Subjective Pt was seen and examined Lying in bed with no distress Pt said that she does not have any chest pain since yesterday she said that she does not have any abdominal pain now she does have some nausea Continue to have some headache, but slightly improved compared to yesterday denies any chest pain, palpitation, sob . Objective Last 8 Hrs Date Time Temp Pulse Resp B/P Pulse Ox O2 Delivery O2 Flow Rate FiO2 09/20/16 11:36 36.9 69 20 125/85 97 Room Air 09/20/16 08:05 Room Air 09/20/16 07:52 37.0 71 98/61 98 Room Air Physical Exam: General- No acute distress Head- atraumatic Eyes- PERRL, EOMI ENT- oropharynx clear Neck- supple, no JVD Lungs- clear to auscultation, no wheezing Heart- regular rhythm; no murmur Abdomen- normal bowel sounds, soft, +tender with palpation Extremities- no calf tenderness Neuro- alert, oriented x 3; PERRL, EOMI; no facial palsy; no dysarthria Skin- warm & dry Laboratory Results: Last 24 Hours Test 09/20/16 06:30 White Blood Count 4.78 K/uL Red Blood Count 4.09 M/uL Hemoglobin 12.7 g/dL Hematocrit 37.7 % Mean Corpuscular Volume 92.2 fL Mean Corpuscular Hemoglobin 31.1 pg Mean Corpuscular Hemoglobin Concent 33.7 g/dl RDW Standard Deviation 45.0 fL RDW Coefficient of Variation 13.3 % Platelet Count 233 K/uL Mean Platelet Volume 8.4 fL Sodium Level 143 mmol/L Potassium Level 3.5 mmol/L Chloride Level 112 mmol/L Carbon Dioxide Level 24 mmol/L Anion Gap 7.0 mmol/L Blood Urea Nitrogen 4 mg/dl Creatinine 0.92 mg/dl Est Creatinine Clear Calc Drug Dose 93.2 ml/min Estimated GFR () 90.3 Estimated GFR (Non- 77.9 BUN/Creatinine Ratio 4.3 Random Glucose 74 mg/dl Calcium Level 8.0 mg/dl Assessment & Plan Chest pain Mostly atypical possible related to GI etiology All 3 sets of troponin negative No chest pain currently Echo showed: * Left ventricular systolic function is normal. * Ejection Fraction = 65-70%. * Pulse wave TDI of the anterior and posterior mitral annulas demonstrates normal LV relaxation * The left ventricular wall motion is normal. Headache hx of intracranial hemorrhage s/p surgery CT head without contrast negative resume Imitrex and continue sumatriptan She has an upcoming appt with neuro next month Diarrhea Possible related to contrast Improved Abdominal pain CT abd showed Mild small bowel wall thickening consistent with a nonspecific enteritis Improved Hypokalemia possible related to diarrhea K 3.8 monitor bmp Leukocytosis WBC on admission 23K mostly reactive Afebrile, WBC 4K today CT abd showed Mild small bowel wall thickening consistent with a nonspecific enteritis CXR negative Urine cx negative Seizure disorder no seizure activities stable on medications Attention deficit post ICH on Adderall Mood disorder. stable Disposition Follow up appointment with Dr. Catherine on September 25 @ 1:30pm Discharge planning: home Current Inpatient Medications: Current Inpatient Medications Medications (Trade) Dose Ordered Sig/Ugo Route Start Time Stop Time Status Last Admin Dose Admin Ioversol (Optiray 320) 100 ml UD PRN IV 09/18/16 17:30 09/22/16 17:29 Acetaminophen (Tylenol Tab) 650 mg Q4H PRN PO 09/18/16 21:45 10/18/16 21:44 Nitroglycerin (Nitrostat Tab) 0.4 mg UD PRN SL 09/18/16 21:45 10/18/16 21:44 Ondansetron HCl 4 mg 4 mg Q6H PRN IV 09/18/16 21:45 10/18/16 21:44 09/20/16 10:10 4 MG Promethazine HCl/ Sodium Chloride (Phenergan Inj/ Nss 50ml) 50.5 ml @ 204 mls/hr Q6H PRN IV 09/18/16 21:45 10/18/16 21:44 Oxycodone/ Acetaminophen (Percocet 5-325mg Tab) 1 tab Q6H PRN PO 09/18/16 21:45 10/02/16 21:44 09/19/16 20:22 1 TAB Morphine Sulfate (MoRPHine SULFATE INJ) 4 mg Q3H PRN IV 09/18/16 21:45 10/02/16 21:44 09/20/16 04:33 4 MG Bupropion HCl (Wellbutrin-Sr Tab) 150 mg BID PO 09/19/16 09:00 10/19/16 08:59 09/20/16 08:05 150 MG Lamotrigine (Lamictal Tab) 200 mg BID PO 09/19/16 09:00 10/19/16 08:59 09/20/16 08:05 200 MG Topiramate (Topamax Tab) 50 mg QAM PO 09/19/16 09:00 10/19/16 08:59 09/20/16 08:04 50 MG Topiramate (Topamax Tab) 100 mg HS PO 09/19/16 21:00 10/19/16 20:59 09/19/16 20:24 100 MG Amphetamine Aspartate/ Amphetam Sulf (Amphetamine Aspartate/Amph Sulf/Dextramphet) 10 mg BID PO 09/19/16 09:00 10/19/16 08:59 09/19/16 20:33 10 MG Miscellaneous (Iv Fluids Completed) 1 ea PRN PRN N/A 09/18/16 23:15 09/18/17 23:14 Calcium Carbonate 500 mg 500 mg Q6H PRN PO 09/19/16 02:45 10/19/16 02:44 Lactated Ringer's (Lr 1000ml) 1,000 ml @ 75 mls/hr [id number] IV 09/19/16 18:45 10/19/16 18:44 09/19/16 18:54 75 MLS/HR
--- NOTE | 2016-09-20 13:05 | ECHOCARDIOGRAM REPORT ---
*NOTICE TO RECEIVING CONSTITUTION PARTY AGENCY This information is strictly Confidential and protected under [place] law. [place] law prohibits you from making any further disclosure of this information unless further disclosure is expressly permitted by the written consent of the person to whom it pertains or is authorized by law. A general authorization for the release of medical or other information is not sufficient for this purpose. Hospital accepts no responsibility if the information is made available to any other person, INCLUDING THE PATIENT. Interpretation Summary * Name: JEFERSON SMITH Study Date: 09/20/2016 10:14 AM BP: 98/61 mmHg * Patient Location: C.2T\S\S244\S\1 HR: 69 * : 1975 (M/d/yyyy) Gender: Female Height: 65 in * Age: 41 yrs Ethnicity: CA Weight: 215 lb * Ordering Physician: Christian Galloway * Performed By: Gaye Landry * * Reason For Study: CHEST PAIN * BSA: 2.0 m2 * The study was technically adequate. * Compared to prior study, there is no significant change. * -- Conclusions -- * Left ventricular systolic function is normal. * Ejection Fraction = 65-70%. * Pulse wave TDI of the anterior and posterior mitral annulas demonstrates normal LV relaxation * The left ventricular wall motion is normal. Procedure Details * A complete two-dimensional transthoracic echocardiogram was performed (2D, M-mode, Doppler and color flow Doppler). Left Ventricle * The left ventricle is normal in size. * There is no thrombus. * There is normal left ventricular wall thickness. * Left ventricular systolic function is normal. * Ejection Fraction = 65-70%. * The left ventricular wall motion is normal. Right Ventricle * The right ventricle is normal size. * The right ventricular systolic function is normal as assessed by tricuspid annular plane systolic excursion (TAPSE) (normal >1.5 cm). Atria * The left atrial size is normal. * Right atrial size is normal. * There is no evidence of atrial septal defect, but resolution does not allow assessment for a patent foramen ovale. Mitral Valve * The mitral valve is normal. * There is no mitral valve stenosis. * Significant mitral regurgitation is absent. Tricuspid Valve * The tricuspid valve is normal. * There is no tricuspid stenosis. * There is trace tricuspid regurgitation. * Doppler findings do not suggest pulmonary hypertension. Aortic Valve * The aortic valve is trileaflet. * Aortic stenosis is absent. * There is no significant aortic regurgitation. Pulmonic Valve * The pulmonary valve is not well seen, but the Doppler examination is normal without significant regurgitation or stenosis. Great Vessels * The aortic root and proximal ascending aorta are normal sized. Pericardium/Pleural * There is no pericardial effusion. Great Vessels * Normal inferior vena cava diameter and respiratory variation suggests normal central venous pressure. Left Ventricular Diastolic Function * Pulse wave TDI of the anterior and posterior mitral annulas demonstrates normal LV relaxation MMode 2D Measurements and Calculations IVSd 1.2 cm IVSs 1.5 cm LVIDd 4.4 cm LVIDs 2.8 cm LVPWd 0.78 cm LVPWs 1.4 cm IVS/LVPW 1.5 FS 37.6 % EDV(Teich) 88.3 ml ESV(Teich) 28.3 ml EF(Teich) 67.9 % EDV(cubed) 85.9 ml ESV(cubed) 20.8 ml EF(cubed) 75.7 % % IVS thick 33.1 % % LVPW thick 79.7 % LV mass(C)d 142.6 grams LV mass(C)dI 69.9 grams/m\S\2 LV mass(C)s 137.3 grams LV mass(C)sI 67.3 grams/m\S\2 SV(Teich) 59.9 ml SI(Teich) 29.4 ml/m\S\2 SV(cubed) 65.0 ml SI(cubed) 31.9 ml/m\S\2 ACS 1.1 cm LA dimension 3.5 cm asc Aorta Diam 2.7 cm LVOT diam 1.9 cm LVOT area 2.9 cm\S\2 LVAd ap4 26.4 cm\S\2 LVLd ap4 7.6 cm EDV(MOD-sp4) 75.4 ml EDV(sp4-el) 77.6 ml LVAs ap4 13.0 cm\S\2 LVLs ap4 6.1 cm ESV(MOD-sp4) 23.1 ml ESV(sp4-el) 23.6 ml EF(MOD-sp4) 69.3 % EF(sp4-el) 69.6 % LVAd ap2 25.7 cm\S\2 LVLd ap2 7.6 cm EDV(MOD-sp2) 72.9 ml EDV(sp2-el) 73.9 ml LVAs ap2 12.0 cm\S\2 LVLs ap2 5.5 cm ESV(MOD-sp2) 22.4 ml ESV(sp2-el) 22.4 ml EF(MOD-sp2) 69.2 % EF(sp2-el) 69.7 % LVLd %diff -0.81 % EDV(MOD-bp) 74.0 ml LVLs %diff -9.80 % ESV(MOD-bp) 23.8 ml EF(MOD-bp) 67.9 % SV(MOD-sp4) 52.2 ml SI(MOD-sp4) 25.6 ml/m\S\2 SV(MOD-sp2) 50.5 ml SI(MOD-sp2) 24.8 ml/m\S\2 SV(MOD-bp) 50.3 ml SI(MOD-bp) 24.6 ml/m\S\2 SV(sp4-el) 54.0 ml SI(sp4-el) 26.5 ml/m\S\2 SV(sp2-el) 51.5 ml SI(sp2-el) 25.3 ml/m\S\2 Doppler Measurements and Calculations MV E max lacie 98.5 cm/sec MV A max lacie 65.3 cm/sec MV E/A 1.5 MV dec time 0.25 sec Ao V2 max 131.1 cm/sec Ao max PG 6.9 mmHg Ao max PG (full) 2.6 mmHg YAJAIRA(V,A) 2.3 cm\S\2 YAJAIRA(V,D) 2.3 cm\S\2 LV V1 max PG 4.3 mmHg LV V1 max 103.8 cm/sec PA V2 max 64.9 cm/sec PA max PG 1.7 mmHg TR max lacie 185.8 cm/sec
[2016-09-20 14:28] VITALS: BP 125/85; PULSE 69; TEMP 36.9; O2SAT 97
--- NOTE | 2016-09-20 14:35 | Discharge Instructions ---
Discharge Instructions Date of Service Sep 20, 2016. Admission Reason for Admission: Chest Pain Discharge Discharge Diagnosis / Problem: Atypical Chest Pain, Headache, Abdominal Pain, leukocytosis Discharge Goals Goal(s): Decrease discomfort, Improve function, Improve disease control Activity Recommendations Activity Limitations: resume your previous activity (as tolerated) . Instructions / Follow-Up Instructions / Follow-Up Follow up appointment with your primary care provider Dr. Catherine on September 25 @1:30 pm Follow up with Neurology Increase dietary potassium intake such as banana, yogurt, fruit and vegetables Current Hospital Diet Patient's current hospital diet: Regular Diet, Low Lactose Diet Discharge Diet Recommended Diet: Regular Diet Pending Studies Studies pending at discharge: no Medical Emergencies . Who to Call and When: Medical Emergencies: If at any time you feel your situation is an emergency, please call 911 immediately. . Non-Emergent Contact Non-Emergency issues call your: Primary Care Provider Call Non-Emergent contact if: your pain is not controlled, your pain is worsening, your pain is concerning you, you have any medication questions . . "Provider Documentation" section prepared by Collin Hopkins. VTE Core Measure Inpt VTE Proph given/why not?: SCD's
[2016-09-20 15:23] VITALS: BP 119/78; PULSE 74; TEMP 36.6; O2SAT 96
--- NOTE | 2016-09-20 17:36 | Discharge Summary ---
Discharge Summary Date of Service Sep 20, 2016. Discharge Summary Admission Date: Sep 18, 2016 at 21:26 Discharge Date: Sep 20, 2016 Discharge Disposition: Home Principal Diagnosis: Atypical chest pain Secondary Diagnoses/Problems: Headache Hypokalemia Leukocytosis Abdominal Pain Diarrhea Mood disorder Procedures: Echo Showed Interpretation Summary * Name: JEFERSON SMITH Study Date: 09/20/2016 10:14 AM BP: 98/61 mmHg * Patient Location: [facility]\\S\\[facility]\\S\\1 HR: 69 * : 1975 (M/d/yyyy) Gender: Female Height: 65 in * Age: 41 yrs Ethnicity: [place] Weight: 215 lb * Ordering Physician: Christian Galloway * Performed By: Gaye Landry * * Reason For Study: CHEST PAIN * BSA: 2.0 m2 * The study was technically adequate. * Compared to prior study, there is no significant change. * -- Conclusions -- * Left ventricular systolic function is normal. * Ejection Fraction = 65-70%. * Pulse wave TDI of the anterior and posterior mitral annulas demonstrates normal LV relaxation * The left ventricular wall motion is normal. Procedure Details * A complete two-dimensional transthoracic echocardiogram was performed (2D, M- mode, Doppler and color flow Doppler). Left Ventricle * The left ventricle is normal in size. * There is no thrombus. * There is normal left ventricular wall thickness. * Left ventricular systolic function is normal. * Ejection Fraction = 65-70%. * The left ventricular wall motion is normal. Right Ventricle * The right ventricle is normal size. * The right ventricular systolic function is normal as assessed by tricuspid annular plane systolic excursion (TAPSE) (normal >1.5 cm). Atria * The left atrial size is normal. * Right atrial size is normal. * There is no evidence of atrial septal defect, but resolution does not allow assessment for a patent foramen ovale. Mitral Valve * The mitral valve is normal. * There is no mitral valve stenosis. * Significant mitral regurgitation is absent. Tricuspid Valve * The tricuspid valve is normal. * There is no tricuspid stenosis. * There is trace tricuspid regurgitation. * Doppler findings do not suggest pulmonary hypertension. Aortic Valve * The aortic valve is trileaflet. * Aortic stenosis is absent. * There is no significant aortic regurgitation. Pulmonic Valve * The pulmonary valve is not well seen, but the Doppler examination is normal without significant regurgitation or stenosis. Great Vessels * The aortic root and proximal ascending aorta are normal sized. Pericardium/Pleural * There is no pericardial effusion. Great Vessels * Normal inferior vena cava diameter and respiratory variation suggests normal central venous pressure. Left Ventricular Diastolic Function * Pulse wave TDI of the anterior and posterior mitral annulas demonstrates normal LV relaxation Medication Reconciliation Continued Medications: Amphetamine-Dextroamphetamine 10MG (Adderall 10MG) 1 Tab Tab 1 TAB PO BID for 30 Days, #60 TAB Bupropion (Wellbutrin Sr) 150 Mg Ertab 150 MG PO BID, TAB Lamotrigine (Lamictal) 200 Mg Tab 200 MG PO BID, TAB Sumatriptan Succinate (Imitrex) 100 Mg Tab 100 MG PO PRN, TAB Topiramate (Topamax) 50 Mg Tab 50 MG PO QAM, TAB Topiramate (Topamax) 50 Mg Tab 100 MG PO HS, TAB Admission Information HPI (per Admitting provider): CHIEF COMPLAINT: Chest pain, abdominal pain. HISTORY OF PRESENT ILLNESS: Medical history significant for migraine, seizure disorder, history of intracranial hemorrhage sp surgery, melanoma sp surgery, restless legs syndrome, anxiety, mood disorder, endometriosis. Recent confinement 2011 for syncope, cellulitis, left foot. Patient was at work at the [employer] clinic yesterday when she had achy epigastric discomfort going to her chest. Ham sandwich for lunch. She could not breathe, some nausea. no emesis. Some relief with Aspirin and Nitroglycerin given at the office. Px comfortable after GI cocktail given in the ER. Loose stools noted at the ER. Physical Exam (per Admitting): VITAL SIGNS: Blood pressure was noted to be 130/86, pulse 90, RR 18, TemP 37, O2 sat 98 RA. GENERAL: Slightly anxious, obese, no respiratory distress. SKIN: Normal color. HEENT: [place] palpebral conjunctivae. Dry mucosa. NECK: No JVD. supple CHEST: Clear to auscultation. HEART: Regular rate and rhythm. ABDOMEN: Minimal epigastric tenderness. EXTREMITIES: No edema. no tenderness NEUROLOGIC: No gross focality. Hospital Course Chest pain Mostly atypical possible related to GI etiology All 3 sets of troponin negative No chest pain currently Echo showed: * Left ventricular systolic function is normal. * Ejection Fraction = 65-70%. * Pulse wave TDI of the anterior and posterior mitral annulas demonstrates normal LV relaxation * The left ventricular wall motion is normal. Headache hx of intracranial hemorrhage s/p surgery CT head without contrast negative resume Imitrex and continue sumatriptan She has an upcoming appt with neuro next month Diarrhea Possible related to contrast Improved Abdominal pain CT abd showed Mild small bowel wall thickening consistent with a nonspecific enteritis Improved Hypokalemia possible related to diarrhea K 3.8 monitor bmp Leukocytosis WBC on admission 23K mostly reactive Afebrile, WBC 4K today CT abd showed Mild small bowel wall thickening consistent with a nonspecific enteritis CXR negative Urine cx negative Seizure disorder no seizure activities stable on medications Attention deficit post ICH on Adderall Mood disorder. stable Disposition Follow up appointment with Dr. Catherine on September 25 @ 1:30pm Total time spent on discharge = 35 minutes This includes examination of the patient, discharge planning, medication reconciliation, and communication with other providers. Discharge Instructions Discharge Instructions Date of Service Sep 20, 2016. Admission Reason for Admission: Chest Pain Discharge Discharge Diagnosis / Problem: Atypical Chest Pain, Headache, Abdominal Pain, leukocytosis Discharge Goals Goal(s): Decrease discomfort, Improve function, Improve disease control Activity Recommendations Activity Limitations: resume your previous activity (as tolerated) . Instructions / Follow-Up Instructions / Follow-Up Follow up appointment with your primary care provider Dr. Catherine on September 25 @1:30 pm Follow up with Neurology Increase dietary potassium intake such as banana, yogurt, fruit and vegetables Current Hospital Diet Patient's current hospital diet: Regular Diet, Low Lactose Diet Discharge Diet Recommended Diet: Regular Diet Pending Studies Studies pending at discharge: no Medical Emergencies . Who to Call and When: Medical Emergencies: If at any time you feel your situation is an emergency, please call 911 immediately. . Non-Emergent Contact Non-Emergency issues call your: Primary Care Provider Call Non-Emergent contact if: your pain is not controlled, your pain is worsening, your pain is concerning you, you have any medication questions . . "Provider Documentation" section prepared by Collin Hopkins. VTE Core Measure Inpt VTE Proph given/why not?: SCD's Additional Copies To Patti Catherine D.O.
== END 2016-09-20 15:53 | disposition home or self-care (01) ==
LOC: ENRESERVDT → ENRESERVTM → EDBD 14:44 → C.EDC 14:45 → C.2T 21:26
PROVIDERS: ADMIT Internal Medicine; ATTEND Internal Medicine
DX: R07.89 Other chest pain (principal); R10.13 Epigastric pain; R51 Headache; E87.6 Hypokalemia; D72.829 Elevated white blood cell count, unspecified; G40.909 Epilepsy, unspecified, not intractable, without status epilepticus; R19.7 Diarrhea, unspecified; G25.81 Restless legs syndrome; F98.8 Other specified behavioral and emotional disorders with onset usually occurring in childhood and adolescence; F39 Unspecified mood [affective] disorder; Z90.49 Acquired absence of other specified parts of digestive tract; Z85.820 Personal history of malignant melanoma of skin; Z83.3 Family history of diabetes mellitus; Z82.49 Family history of ischemic heart disease and other diseases of the circulatory system; Z84.1 Family history of disorders of kidney and ureter

== ENCOUNTER → 2016-09-25 | Outpatient (CLI) | payer OTHER ==
[~2016-09-25] MED LIST changes: +SUMA100T16 PO
== END | disposition home or self-care (01) ==
LOC: C.LAB 14:38
PROVIDERS: ATTEND Family Medicine
DX: R06.02 Shortness of breath (principal)

== ENCOUNTER 2018-02-04 22:50 | Emergency (ER) | payer OTHER ==
[~2018-02-04 22:50] MED LIST changes: +LAMO200T35 PO; -LAMO200T38 PO
[2018-02-04 22:52] VITALS: TEMP 36.5
[2018-02-04] MEDS ORDERED: ONDANSETRON INJ 2 MG/ML 2 ML VIAL IV STA (22:59)
[2018-02-04] MEDS ORDERED: KETOROLAC TROMETHAMINE 30 MG/ML VIAL IV STA (22:59)
[2018-02-04] MEDS ORDERED: MoRPHine SULFATE 4 MG/ML 1 ML CARP\\VIAL IV STA (22:59)
[2018-02-04] MEDS ORDERED: SODIUM CHLORIDE 0.9% 1000ML 1,000 ML IV STA (22:59)
[2018-02-04 23:51] LABS: BASO % 0.4 %; BASO ABS # 0.05 K/uL (0-0.2); EOS % 1.6 %; HEMATOCRIT 43.6 % (37-47); HEMOGLOBIN 14.9 g/dL (12.0-16.0); IG# 0.05 K/uL (0.00-0.02); LYMPH % 23.3 %; LYMPH ABS # 2.99 K/uL (1.2-3.4); MEAN CELL VOLUME 91.8 fL (80-100); MEAN CORPUSCULAR HEMOGLOBIN 31.4 pg (25-34); MEAN CORPUSCULAR HGB CONC 34.2 g/dl (32-36); MEAN PLATELET VOLUME 8.6 fL (7.4-10.4); MONO % 9.1 %; MONO ABS # 1.17 K/uL (0.11-0.59); NEUT % 65.2 %; NEUT ABS # 8.36 K/uL (1.4-6.5); PLATELET COUNT 340 K/uL (130-400); RED CELL DISTRIBUTION WIDTH CV 13.3 % (11.5-14.5); RED CELL DISTRIBUTION WIDTH SD 44.9 fL (36.4-46.3); WHITE BLOOD COUNT 12.82 K/uL (4.8-10.8)
[2018-02-05] MEDS ORDERED: NURSING VERBAL MED ORDER ONE (00:10)
[2018-02-05 00:15] LABS: ALBUMIN 3.4 gm/dl (3.4-5.0); ALKALINE PHOSPHATASE 106 U/L (45-117); ALT/SGPT 30 U/L (12-78); AST/SGOT 17 U/L (15-37); BLOOD UREA NITROGEN 12 mg/dl (7-18); CALCIUM 8.5 mg/dl (8.5-10.1); CARBON DIOXIDE 23 mmol/L (21-32); CREATININE 1.09 mg/dl (0.60-1.20); GLUCOSE 106 mg/dl (70-99); POTASSIUM 3.4 mmol/L (3.5-5.1); SODIUM 139 mmol/L (136-145); TOTAL PROTEIN 6.9 gm/dl (6.4-8.2)
[2018-02-05] MEDS ORDERED: POTASSIUM CHLORIDE 10 MEQ TABCR PO STA (00:18)
[2018-02-05] MEDS ORDERED: OXYCODONE IR HOME PACK PO ONE (01:00)
[2018-02-05] MEDS ORDERED: ONDANSETRON HOME PACK 4MG OD TAB PO ONE (01:00)
[2018-02-05] MEDS ORDERED: OXYC-737 PO (01:04)
[2018-02-05] MEDS ORDERED: LAMO150T PO (01:13)
[2018-02-05] MEDS ORDERED: TOPI100T20 PO (01:14)
[2018-02-05] MEDS ORDERED: AMPH30CA3 PO (01:15)
[2018-02-05] MEDS ORDERED: CYM/30 PO (01:17)
[2018-02-05 01:19] VITALS: BP 97/50; PULSE 97; O2SAT 93
--- NOTE | 2018-02-05 05:49 | DIAGNOSTIC IMAGING REPORT ---
(BAYRON/BLAD)RETROPERITON COMP CLINICAL HISTORY: 43 years-old Female presenting with left flank pain, ? stone. TECHNIQUE: Real-time grayscale and limited color Doppler ultrasound imaging of the kidneys and bladder was performed. COMPARISON: CT from 09/18/2016. FINDINGS: Right kidney: Normal echogenicity of renal parenchyma. Right kidney measures 10.3 cm. No hydronephrosis. No convincing evidence of calculus or mass. Left kidney: Normal echogenicity of renal parenchyma. Left kidney measures 11.7 cm. Mild pelvocaliectasis. The proximal ureter measures 12 mm in AP diameter. No convincing evidence of calculus or mass. Bladder: Incompletely distended limiting evaluation. Bilateral ureteral jets not visualized. Other: None. IMPRESSION: 1. Suspected mild left hydroureteronephrosis. An obstructing calculus cannot be excluded. Further evaluation with CT recommended. Electronically signed by: Jose Ho M.D. 02/05/2018 5:48 AM Dictated Date/Time: 02/05/2018 5:45 AM
--- NOTE | 2018-02-05 06:09 | EMERGENCY ROOM VISIT NOTE ---
History First contact with patient: 22:55 Chief Complaint: FLANK PAIN Stated Complaint: FLANK PAIN History of Present Illness The patient is a 43 year old female who presents to the Emergency Room with complaints of left flank pain described as severe, 8 out of 10. It occasionally radiates to her groin. Nothing makes it better or worse. Patient has a history of kidney stones and symptoms feel similar. She does not have a urologist. No history of lithotripsy or stent placement in the past. Patient denies chest pain, dyspnea, fever, chills, vomiting, diarrhea, urinary problems , vaginal itching or discharge. Review of Systems An 10 system review of systems was completed with positives and pertinent negatives listed in the HPI. Past Medical/Surgical History Medical Problems: (1) Chest pain (2) Migraines (3) Wide excision of melanoma Surgical Problems: (1) History of cholecystectomy (2) History of hernia repair Family History FHx: cancer FHx: diabetes FHx: gallbladder disease FHx: heart disease FHx: hypertension FHx: kidney disease/stones Social History Smoking Status: Never Smoker Alcohol Use: none Drug Use: none Marital Status: Housing Status: lives with family Occupation Status: employed Current/Historical Medications Scheduled Amphetamine-Dextroamphetamine 30MG (Adderall Xr 30MG), 30 MG PO QAM Duloxetine HCl (Cymbalta), 30 MG PO DAILY Lamotrigine (Lamictal), 150 MG PO BID Sumatriptan Succinate (Imitrex), 100 MG PO PRN Topiramate (Topamax), 100 MG PO BID Scheduled PRN Oxycodone Immediate Rel Tab (Roxicodone Ir), 1-2 TAB PO Q4H PRN for Severe Pain Physical Exam Vital Signs Date Time Temp Pulse Resp B/P (MAP) Pulse Ox O2 Delivery O2 Flow Rate FiO2 02/05/18 01:19 97 18 97/50 93 02/05/18 00:27 96 18 115/56 98 Room Air 02/04/18 23:23 Room Air 02/04/18 22:52 36.5 127 18 149/70 97 Room Air Physical Exam VITALS: Vitals are noted on the nurse's note and reviewed by myself. Vital signs reviewed. GENERAL: White female who appears in pain, in no acute distress, nondiaphoretic , well-developed well-nourished. SKIN: The skin was without rashes, erythema, edema, or bruising. There is no tenting of the skin. Capillary reflex less than 2 seconds. HEAD: Normocephalic atraumatic. EARS: External auditory canals clear, tympanic membranes pearly [place] without erythema or effusion bilaterally. EYES: Pupils equal round and reactive to light and accommodation. Conjunctivae without injection, sclerae without icterus. Extraocular movements intact. NOSE: Patent, turbinates without inflammation or discharge. MOUTH: Mucous membranes moist. Pharynx without erythema or exudate. Uvula midline. Airway patent. Tongue does not deviate. NECK: Supple without nuchal rigidity. No lymphadenopathy. No thyromegaly. Cervical spine is nontender. No JVD. HEART: Regular rate and rhythm without murmurs gallops or rubs. LUNGS: Clear to auscultation bilaterally without wheezes, rales or rhonchi. No retractions or accessory muscle use. ABDOMEN: Positive bowel sounds x 4. Normal tympanic percussion. Soft, nontender, without masses or organomegaly. [place]ennison sign negative. No guarding or rebound tenderness. No CVA tenderness MUSCULOSKELETAL: No muscle atrophy, erythema, or edema noted. NEURO: Patient was alert and oriented to person place and time. Normal sensation to light and sharp touch. No focal neurological deficits. Medical Decision & Procedures Laboratory Results 02/04/18 23:10 Red Blood Count 4.75, Mean Corpuscular Volume 91.8, Mean Corpuscular Hemoglobin 31.4, Mean Corpuscular Hemoglobin Concent 34.2, Mean Platelet Volume 8.6, Neutrophils (%) (Auto) 65.2, Lymphocytes (%) (Auto) 23.3, Monocytes (%) (Auto) 9.1, Eosinophils (%) (Auto) 1.6, Basophils (%) (Auto) 0.4, Neutrophils # (Auto) 8.36, Lymphocytes # (Auto) 2.99, Monocytes # (Auto) 1.17, Eosinophils # (Auto) 0.20, Basophils # (Auto) 0.05 02/04/18 23:10 Test 02/04/18 23:10 02/04/18 23:20 White Blood Count 12.82 K/uL (4.8-10.8) Red Blood Count 4.75 M/uL (4.2-5.4) Hemoglobin 14.9 g/dL (12.0-16.0) Hematocrit 43.6 % (37-47) Mean Corpuscular Volume 91.8 fL (80-100) Mean Corpuscular Hemoglobin 31.4 pg (25-34) Mean Corpuscular Hemoglobin Concent 34.2 g/dl (32-36) Platelet Count 340 K/uL (130-400) Mean Platelet Volume 8.6 fL (7.4-10.4) Neutrophils (%) (Auto) 65.2 % Lymphocytes (%) (Auto) 23.3 % Monocytes (%) (Auto) 9.1 % Eosinophils (%) (Auto) 1.6 % Basophils (%) (Auto) 0.4 % Neutrophils # (Auto) 8.36 K/uL (1.4-6.5) Lymphocytes # (Auto) 2.99 K/uL (1.2-3.4) Monocytes # (Auto) 1.17 K/uL (0.11-0.59) Eosinophils # (Auto) 0.20 K/uL (0-0.5) Basophils # (Auto) 0.05 K/uL (0-0.2) RDW Standard Deviation 44.9 fL (36.4-46.3) RDW Coefficient of Variation 13.3 % (11.5-14.5) Immature Granulocyte % (Auto) 0.4 % Immature Granulocyte # (Auto) 0.05 K/uL (0.00-0.02) Anion Gap 9.0 mmol/L (3-11) Estimated GFR () 72.5 Estimated GFR (Non- 62.6 BUN/Creatinine Ratio 10.6 (10-20) Calcium Level 8.5 mg/dl (8.5-10.1) Total Bilirubin 0.3 mg/dl (0.2-1) Direct Bilirubin < 0.1 mg/dl (0-0.2) Aspartate Amino Transf (AST/SGOT) 17 U/L (15-37) Alanine Aminotransferase (ALT/SGPT) 30 U/L (12-78) Alkaline Phosphatase 106 U/L (45-117) Total Protein 6.9 gm/dl (6.4-8.2) Albumin 3.4 gm/dl (3.4-5.0) Human Chorionic Gonadotropin, Qual NEG (NEG) Urine Color YELLOW Urine Appearance CLEAR (CLEAR) Urine pH 7.0 (4.5-7.5) Urine Specific [place] 1.005 (1.000-1.030) Urine Protein NEG (NEG) Urine Glucose (UA) NEG (NEG) Urine Ketones NEG (NEG) Urine Occult Blood NEG (NEG) Urine Nitrite NEG (NEG) Urine Bilirubin NEG (NEG) Urine Urobilinogen NEG (NEG) Urine Leukocyte Esterase NEG (NEG) Urine WBC (Auto) 1-5 /hpf (0-5) Urine RBC (Auto) 0-4 /hpf (0-4) Urine Hyaline Casts (Auto) 0 /lpf (0-5) Urine Epithelial Cells (Auto) 20-30 /lpf (0-5) Urine Bacteria (Auto) NEG (NEG) Medications Administered Medications (Trade) Dose Ordered Sig/Ugo Route Start Time Stop Time Status Last Admin Dose Admin Ketorolac Tromethamine (Toradol Inj) 10 mg NOW STAT IV 02/04/18 22:59 02/04/18 23:01 DC 02/04/18 23:20 10 MG Ondansetron HCl (Zofran Inj) 4 mg NOW STAT IV 02/04/18 22:59 02/04/18 23:01 DC 02/04/18 23:21 4 MG Morphine Sulfate (MoRPHine SULFATE INJ) 4 mg NOW STAT IV 02/04/18 22:59 02/04/18 23:01 DC 02/04/18 23:20 4 MG Sodium Chloride 1,000 ml @ 999 mls/hr Q1H1M STAT IV 02/04/18 22:59 02/04/18 23:59 DC 02/04/18 23:20 999 MLS/HR Miscellaneous Information (Nursing Verbal Med Order) 1 ea ONE ONCE N/A 02/05/18 00:10 02/05/18 00:11 DC 02/05/18 00:10 1 EA Potassium Chloride (Klor-Con M10) 10 meq NOW STAT PO 02/05/18 00:18 02/05/18 00:19 DC 02/05/18 00:26 10 MEQ Ondansetron HCl (ZOFRAN ODT 4MG Home Pack) 1 homepack UD ONCE PO 02/05/18 01:00 02/05/18 01:01 DC 02/05/18 01:15 1 HOMEPACK Oxycodone HCl (Roxicodone Immediate Rel 5MG Home Pack) 1 homepack UD ONCE PO 02/05/18 01:00 02/05/18 01:01 DC 02/05/18 01:15 1 HOMEPACK ED Course Prior records/ancillary studies reviewed. Triage Nursing notes reviewed. Additional history obtained from the family. The patient's history was concerning for left flank pain. Differential diagnosis: Etiologies such as renal colic, appendicitis, diverticulitis, mesenteric ischemia, aortic pathology, infections, inflammatory bowel disease, PUD, biliary pathology, UTI, as well as others were entertained. Physical examination findings: As above. ER treatment provided: Toradol, morphine, Zofran, IV fluids On reassessment the patient felt better. Diagnostic interpretation by me: The labs revealed mild leukocytosis. Urinalysis revealed There was no sign of UTI. Imaging studies: Ultrasound shows left hydronephrosis per radiology It appears that the patient has isolated renal colic from a left sided stone. patient has a history of kidney stones. CT scan from last year showed A 3 mm left renal stone. Most likely the patient's past and is now. Patient's pain was under control. She felt much better and requested to leave. She is advised to strain her urine and take medications as directed to follow-up urology in a few days or here in the ER sooner for severe pain, fevers, vomiting , worsening signs or symptoms or as needed. Patient had no signs of UTI. She was well-appearing. She was afebrile and nontoxic. By the evaluation outlined above emergent etiologies such as appendicitis, diverticulitis, mesenteric ischemia, aortic pathology, infections, inflammatory bowel disease, PUD, biliary pathology, UTI, as well as others were deemed relatively unlikely. The pt informed about the findings as listed above. All questions were answered and pleased with the treatment. Return instructions were outlined and the patient was discharged in stable condition. Outpatient prescription management: Oxy IR 5mg 1-2 po Q4 hrs prn Zofran Referral: The pt was referred to [facility] for follow up care regarding their stone. or The patient was referred back to their primary care physician for follow-up in 2 to 3 days for a recheck of the current condition. Case reviewed with my attending The chart was completed utilizing [employer] voice recognition software. Grammatical errors, random word insertions, pronoun errors, and incomplete sentences are an occassional consequence of this system due to software limitations, ambient noise, and hardware issues. Any formal questions or concerns about the content, text, or information contained within the body of this dictation should be directly addressed to the physician glass ribbon machine operator assistant for clarification. Medical Decision As above [place] Drug Monitoring Program Search Results: patient reviewed within database, no issues identified Medication Reconcilliation Current Medication List: was personally reviewed by me Blood Pressure Screening Patient's blood pressure: Normal blood pressure Impression Primary Impression: Nephrolithiasis Additional Impression: Renal colic on left side Departure Information Dispostion Home / Self-Care Condition GOOD Prescriptions Oxycodone Immediate Rel Tab (ROXICODONE IR) 5 Mg Tab 1-2 TAB PO Q4H Y for Severe Pain, #15 TAB initial treatment Prov: Marlene Benavidez PA-C 02/05/18 Referrals Aristides Souza MD Forms HOME CARE DOCUMENTATION FORM, Work Instructions, Return To Work: 3 days IMPORTANT VISIT INFORMATION Patient Instructions Kidney Stones - [facility], [facility] Additional Instructions DO NOT drive, drink alcohol, operate machinery, or perform dangerous activities today. You were given medications in the ER that can affect your ability to safely function or operate a vehicle. Oxycodone Immediate Release (OxyIR) 5mg: Take 1-2 pills every four hours for pain. Avoid alcohol, operating machinery or dangerous equipment, working on ladders or roofs, DRIVING, or situations where being under the influence may be dangerous. It is recommended to use an xuun-twp-orrtlpt stool softener such as Colace, 100mg twice daily while taking this medication to avoid constipation. Zofran 4 mg: Take one every six hours as needed for nausea. Avoid alcohol, operating machinery or dangerous equipment, working on ladders or roofs, DRIVING , or situations where being under the influence may be dangerous. Ibuprofen(Motrin, Advil) may be used for fever or pain. Use 600mg every six hours as needed. Take with food. Avoid using more than 2400mg in a 24 hour period. Do not use 2400mg per day for more than three consecutive days without physician direction. Prolonged inappropriate use can lead to stomach upset or ulcers. This medication can be taken if you need to drive, work, or perform activities which may be dangerous when taking narcotic pain medication. (AND/OR) Acetaminophen(Tylenol) may be used for fever or pain. Use 1000mg every six hours as needed. Avoid using more than 3000mg in a 24 hour period. This medication can be taken if you need to drive, work, or perform activities which may be dangerous when taking narcotic pain medication. Strain your urine and collect all the stones or debris for the urologists. Rest and avoid strenuous activity until your stone passes and symptoms resolve. Drink plenty of fluids. Continue current medications. Return to the ER for worsening abdominal or back pain, vomiting, fevers, passing out, or as needed. Follow up with urology in 2-3 days, call for an appointment. Work Instructions Return To Work: 3 days Problem Qualifiers
== END 2018-02-05 01:20 | disposition home or self-care (01) ==
LOC: C.EDB 22:51
DX: N20.0 Calculus of kidney (principal); N23 Unspecified renal colic; Z79.899 Other long term (current) drug therapy; Z87.442 Personal history of urinary calculi; Z85.820 Personal history of malignant melanoma of skin

== ENCOUNTER → 2018-02-09 | Outpatient (CLI) | payer OTHER ==
[~2018-02-09] MED LIST changes: -AMPH10TA2 PO; +AMPH30CA3 PO; -BUPR-79 PO; +CYM/30 PO; +LAMO150T PO; -LAMO200T35 PO; +ONDA4TAB10 SL; +OXYC-737 PO; +OXYC-90 PO; +TOPI100T20 PO; -TOPI50TA16 PO
== END | disposition home or self-care (01) ==
LOC: C.LAB1850 08:25
PROVIDERS: ATTEND Physician Assistant
DX: Z13.1 Encounter for screening for diabetes mellitus (principal); Z13.6 Encounter for screening for cardiovascular disorders

== ENCOUNTER → 2018-02-11 | Outpatient (CLI) | payer OTHER ==
[~2018-02-11] MED LIST changes: +ONDA4TAB46 PO
--- NOTE | 2018-02-11 17:23 | DIAGNOSTIC IMAGING REPORT ---
CT SCAN OF THE ABDOMEN AND PELVIS WITHOUT CONTRAST CLINICAL HISTORY: NEPRO LITHIASIS HYDRONEPHROSIS COMPARISON STUDY: Ultrasound study performed January 2018, CT scan performed August 2016 TECHNIQUE: CT scan of the abdomen and pelvis was performed from the lung bases to the proximal femurs. Images are reviewed in the axial, sagittal, and coronal planes. IV contrast was not administered for this examination. A dose lowering technique was utilized adhering to the principles of ALARA. CT DOSE: 1087.23 mGy.cm FINDINGS: Lower chest: The heart is normal in size and configuration, without pericardial effusion. The lung bases and pleural spaces are clear. Liver: The unenhanced liver is normal in size, contour, and attenuation. There is no intrahepatic biliary ductal dilatation. Gallbladder: Surgically absent Spleen: Normal in size and attenuation. Pancreas: Unremarkable. Adrenal glands: Unremarkable. Kidneys: There is a single punctate nonobstructing lower pole right renal calculus. There are 2 punctate nonobstructing lower pole left renal calculi. There is no hydronephrosis. There is an 8mm left pelvic basin calcification, likely representing a nonobstructing left UVJ calculus. A ureteral location could be proven with a contrast study as deemed clinically indicated. Bowel: There are no transition zones indicate bowel obstruction. There is no evidence of acute diverticulitis. The appendix appears normal. Peritoneum: There is trace free pelvic fluid likely physiologic. There is no free intraperitoneal air. Vasculature: The abdominal aorta is normal in course and caliber. Adenopathy: None. Pelvic viscera: The bladder, and pelvic viscera are unremarkable. Skeletal structures: There is bilateral L5 spondylolysis. IMPRESSION: 1. 8 mm left pelvic basin calcification, likely representing a nonobstructing left UVJ calculus. 2. Bilateral nephrolithiasis 3. No evidence of bowel obstruction. No evidence of free air 4. Normal appendix. No evidence of acute diverticulitis. Electronically signed by: Lamberto Colorado M.D. 02/11/2018 5:21 PM Dictated Date/Time: 02/11/2018 5:13 PM
--- NOTE | 2018-02-11 17:26 | DIAGNOSTIC IMAGING REPORT ---
KUB HISTORY: Follow-up study in a patient with left-sided nephrolithiasis N20.0 [id number] Hydronephrosi COMPARISON: CT 02/11/2018 at 4:29 PM FINDINGS: The bowel gas pattern is non-obstructive. There is no organomegaly. Calcifications about the pelvic basin suggest phleboliths. The renal shadows are partially obscured by bowel gas. Punctate bilateral nephrolithiasis are better seen on CT study of same day. No ureteral calculi identified. Mild to moderate stool volume of the colon. Prior cholecystectomy. No pneumoperitoneum or pneumatosis. No fracture. IMPRESSION: 1. Renal shadows are partially obscured by bowel gas. Punctate bilateral nephrolithiasis are better seen on comparison CT study of same day. No ureteral calculi identified. 2. Nonobstructive bowel gas pattern. 3. Prior cholecystectomy. Electronically signed by: Ke Treadwell M.D. 02/11/2018 5:25 PM Dictated Date/Time: 02/11/2018 5:22 PM
== END | disposition home or self-care (01) ==
LOC: C.CTS 16:08
PROVIDERS: ATTEND Urology
DX: N13.2 Hydronephrosis with renal and ureteral calculous obstruction (principal); Z90.49 Acquired absence of other specified parts of digestive tract

== ENCOUNTER 2018-02-14 21:59 | Emergency (ER) | payer OTHER ==
[~2018-02-14] VITALS: Ht 165.1 cm; Wt 101.7 kg
[~2018-02-14 21:59] MED LIST changes: -ONDA4TAB10 SL; -ONDA4TAB46 PO; -OXYC-90 PO
[2018-02-14 22:17] VITALS: TEMP 36.9; Ht 165.1 cm; Wt 101.7 kg
[2018-02-14] MEDS ORDERED: KETOROLAC TROMETHAMINE 30 MG/ML VIAL IV STA (22:55)
[2018-02-14] MEDS ORDERED: SODIUM CHLORIDE 0.9% 1000ML 1,000 ML IV STA (22:55)
[2018-02-14 23:37] LABS: BASO % 0.4 %; BASO ABS # 0.03 K/uL (0-0.2); EOS % 1.4 %; EOS ABS # 0.11 K/uL (0-0.5); HEMATOCRIT 40.5 % (37-47); HEMOGLOBIN 13.3 g/dL (12.0-16.0); IG# 0.02 K/uL (0.00-0.02); LYMPH % 29.4 %; LYMPH ABS # 2.28 K/uL (1.2-3.4); MEAN CELL VOLUME 91.8 fL (80-100); MEAN CORPUSCULAR HEMOGLOBIN 30.2 pg (25-34); MEAN CORPUSCULAR HGB CONC 32.8 g/dl (32-36); MEAN PLATELET VOLUME 8.4 fL (7.4-10.4); MONO % 10.2 %; MONO ABS # 0.79 K/uL (0.11-0.59); NEUT % 58.3 %; NEUT ABS # 4.53 K/uL (1.4-6.5); PLATELET COUNT 303 K/uL (130-400); RED CELL DISTRIBUTION WIDTH CV 13.2 % (11.5-14.5); RED CELL DISTRIBUTION WIDTH SD 44.3 fL (36.4-46.3); WHITE BLOOD COUNT 7.76 K/uL (4.8-10.8)
[2018-02-14 23:53] LABS: CALCIUM 8.3 mg/dl (8.5-10.1); CREATININE 0.94 mg/dl (0.60-1.20); POTASSIUM 3.6 mmol/L (3.5-5.1)
[2018-02-15] MEDS ORDERED: ONDANSETRON INJ 2 MG/ML 2 ML VIAL IV STA (01:51)
[2018-02-15] MEDS ORDERED: OXYCODONE IR HOME PACK PO STA (02:00)
[2018-02-15] MEDS ORDERED: OXYC-90 PO (02:01)
[2018-02-15] MEDS ORDERED: ONDA4TAB10 SL (02:03)
--- NOTE | 2018-02-15 02:03 | EMERGENCY ROOM VISIT NOTE ---
History First contact with patient: 22:41 Chief Complaint: FLANK PAIN Stated Complaint: FLANK PAIN,URINE FREQUENCY,URGENCY History of Present Illness The patient is a 43 year old female who presents to the Emergency Room via private vehicle with complaints of "flank pain, urine frequency, urgency". The patient notes a history of kidney stones. She notes that she currently has one. She follows with [facility] urology. She states that she took 10 mg of oxycodone today with minimal relief of her pain and after calling the radiologist came here for evaluation. She rates the pain as a 10/10. It is in the left flank. This is the same region where she had pain from the known kidney stone. She states that she has been trying to pass the stone with minimal relief over the past few days. She notes she has an appointment this coming Wednesday with urology. She has associated chills but no fever. No dysuria. Review of Systems A complete 10-point Review of Systems was discussed with the patient, with pertinent positives and negatives listed in the History of Present Illness. All remaining Review of Systems questions can be considered negative unless otherwise specified. Past Medical/Surgical History Medical Problems: (1) Chest pain (2) Migraines (3) Wide excision of melanoma Surgical Problems: (1) History of cholecystectomy (2) History of hernia repair Family History FHx: cancer FHx: diabetes FHx: gallbladder disease FHx: heart disease FHx: hypertension FHx: kidney disease/stones Social History Smoking Status: Never Smoker Alcohol Use: none Drug Use: none Marital Status: Housing Status: lives with family Occupation Status: employed Current/Historical Medications Scheduled Amphetamine-Dextroamphetamine 30MG (Adderall Xr 30MG), 30 MG PO QAM Duloxetine HCl (Cymbalta), 30 MG PO DAILY Lamotrigine (Lamictal), 150 MG PO BID Ondasetron Odt (Zofran Odt), 4 MG SL Q6H Sumatriptan Succinate (Imitrex), 100 MG PO PRN Topiramate (Topamax), 100 MG PO BID Scheduled PRN Oxycodone Immediate Rel Tab (Roxicodone Ir), 1-2 TAB PO Q4H PRN for Severe Pain Oxycodone Ir (Roxicodone Ir), 1 TAB PO Q4H PRN for Pain Physical Exam Vital Signs Date Time Temp Pulse Resp B/P (MAP) Pulse Ox O2 Delivery O2 Flow Rate FiO2 02/15/18 02:13 77 18 120/76 97 Room Air 02/15/18 01:43 74 18 126/81 98 Room Air 02/15/18 00:12 75 16 112/64 96 Room Air 02/14/18 22:17 36.9 86 18 122/85 96 Room Air Physical Exam VITAL SIGNS - Vital signs and nursing notes were reviewed. Stable. Afebrile. GENERAL -43-year-old female appearing her stated age who is in no acute distress but does appear to be in pain. Communicates well with provider and answers questions appropriately. SKIN - Without rashes. No meningeal or petechial rash. HEAD - NC/AT. CARDIAC - RRR with S1/S2. No murmur, rubs, or gallops appreciated. ABDOMEN - Abdominal contour normal without pulsations or visible masses. No CVA tenderness. BS normoactive all four quadrants. No tenderness, palpable masses, hepatosplenomegaly, or ascites noted. NEUROLOGIC - Cranial nerves II through XII grossly intact. Sensory intact to light touch throughout. PSYCH - A&O, and cooperates fully with examiner. Pt is very pleasant and interacts well with examiner. Medical Decision & Procedures ER Provider Diagnostic Interpretation: US RENAL: FINDINGS: The kidneys are normal in size. There is no evidence of hydronephrosis or solid mass lesions. No sonographic evidence of renal calculi. The bladder is not optimally distended. Ureteral jets were not demonstrated IMPRESSION: Normal renal sonogram. The bladder was not completely distended Radiologist: Donny Bentley MD Study ready at 01:29 and initial results transmitted at 01:57 Laboratory Results 02/14/18 23:25 Red Blood Count 4.41, Mean Corpuscular Volume 91.8, Mean Corpuscular Hemoglobin 30.2, Mean Corpuscular Hemoglobin Concent 32.8, Mean Platelet Volume 8.4, Neutrophils (%) (Auto) 58.3, Lymphocytes (%) (Auto) 29.4, Monocytes (%) (Auto) 10.2, Eosinophils (%) (Auto) 1.4, Basophils (%) (Auto) 0.4, Neutrophils # (Auto ) 4.53, Lymphocytes # (Auto) 2.28, Monocytes # (Auto) 0.79, Eosinophils # (Auto ) 0.11, Basophils # (Auto) 0.03 02/14/18 23:25 Test 02/14/18 21:21 02/14/18 23:25 Urine Color YELLOW Urine Appearance CLEAR (CLEAR) Urine pH 5.0 (4.5-7.5) Urine Specific Harvest 1.014 (1.000-1.030) Urine Protein NEG (NEG) Urine Glucose (UA) NEG (NEG) Urine Ketones NEG (NEG) Urine Occult Blood 2+ (NEG) Urine Nitrite NEG (NEG) Urine Bilirubin NEG (NEG) Urine Urobilinogen NEG (NEG) Urine Leukocyte Esterase NEG (NEG) Urine WBC (Auto) 1-5 /hpf (0-5) Urine RBC (Auto) 10-30 /hpf (0-4) Urine Hyaline Casts (Auto) 1-5 /lpf (0-5) Urine Epithelial Cells (Auto) 10-20 /lpf (0-5) Urine Bacteria (Auto) NEG (NEG) White Blood Count 7.76 K/uL (4.8-10.8) Red Blood Count 4.41 M/uL (4.2-5.4) Hemoglobin 13.3 g/dL (12.0-16.0) Hematocrit 40.5 % (37-47) Mean Corpuscular Volume 91.8 fL (80-100) Mean Corpuscular Hemoglobin 30.2 pg (25-34) Mean Corpuscular Hemoglobin Concent 32.8 g/dl (32-36) Platelet Count 303 K/uL (130-400) Mean Platelet Volume 8.4 fL (7.4-10.4) Neutrophils (%) (Auto) 58.3 % Lymphocytes (%) (Auto) 29.4 % Monocytes (%) (Auto) 10.2 % Eosinophils (%) (Auto) 1.4 % Basophils (%) (Auto) 0.4 % Neutrophils # (Auto) 4.53 K/uL (1.4-6.5) Lymphocytes # (Auto) 2.28 K/uL (1.2-3.4) Monocytes # (Auto) 0.79 K/uL (0.11-0.59) Eosinophils # (Auto) 0.11 K/uL (0-0.5) Basophils # (Auto) 0.03 K/uL (0-0.2) RDW Standard Deviation 44.3 fL (36.4-46.3) RDW Coefficient of Variation 13.2 % (11.5-14.5) Immature Granulocyte % (Auto) 0.3 % Immature Granulocyte # (Auto) 0.02 K/uL (0.00-0.02) Anion Gap 9.0 mmol/L (3-11) Est Creatinine Clear Calc Drug Dose 92.2 ml/min Estimated GFR () 86.7 Estimated GFR (Non- 74.8 BUN/Creatinine Ratio 11.6 (10-20) Calcium Level 8.3 mg/dl (8.5-10.1) Medications Administered Medications (Trade) Dose Ordered Sig/Ugo Route Start Time Stop Time Status Last Admin Dose Admin Ketorolac Tromethamine (Toradol Inj) 30 mg NOW STAT IV 02/14/18 22:55 02/14/18 22:57 DC 02/14/18 22:55 30 MG Sodium Chloride 1,000 ml @ 999 mls/hr Q1H1M STAT IV 02/14/18 22:55 02/14/18 23:55 DC 02/14/18 23:45 999 MLS/HR Ondansetron HCl (Zofran Inj) 4 mg NOW STAT IV 02/15/18 01:51 02/15/18 01:52 DC 02/15/18 02:01 4 MG Medical Decision Patient was seen and evaluated as above in room A9. Review was performed of nursing notes and vital signs. After obtaining a thorough history and physical examination the above work up was performed. She presents to us today with left flank pain. There is a known stone. I reviewed her recent imaging results with her. There is an 8 mm stone in the left ureter. I suspect this to be the cause of her pain. CBC reveals no concerning leukocytosis or anemia. Metabolic panel reveals no evidence of kidney failure. Calcium slightly low. She was educated upon this finding and ways to increase this. Urinalysis reveals blood but no infection. Ultrasound normal. I suspect this is all pain from the stone that is not causing obstruction currently. She was given Toradol for pain. She was given Zofran for nausea. Fluids were given. She was offered inpatient management and would prefer to be discharged to follow-up with her urologist on Wednesday. I believe this is reasonable. The patient was educated upon management, educated upon todays findings/results, educated upon symptoms in which to return, had questions answered prior to discharge, and was discharged home in good condition. In the evaluation and treatment of this patient the following differential diagnoses were entertained: Renal colic, UTI, pyelonephritis, among others. Impression Primary Impression: Left flank pain Additional Impression: Renal colic on left side Departure Information Dispostion Home / Self-Care Condition GOOD Prescriptions Ondasetron Odt (ZOFRAN ODT) 4 Mg Tab 4 MG SL Q6H for Nausea, #10 TAB Prov: Wilfrido Solano PA-C 02/15/18 Oxycodone Ir (Roxicodone Ir) 5 Mg Tab 1 TAB PO Q4H Y for Pain, #15 TAB For Initial Treatment Prov: Wilfrido Solano PA-C 02/15/18 Referrals Patti Catherine D.O. (PCP) Patient Instructions My [facility] Additional Instructions You have been treated in the Emergency Department today for a Kidney Stone ( Nephrolithiasis). You have been prescribed Oxy IR to be used for pain control. This is a narcotic medication. You cannot drive or consume alcohol while on this medicine. This medicine should only be used for pain that cannot be controlled with over-the- counter pain medicines. You have been prescribed Zofran to be used for any nausea or vomiting. Take as prescribed. For pain control, you can use the following [id number] medicines (if >12 yo): - Regular strength (325mg/tab) Tylenol (acetaminophen) 2 tabs every 4-6 hours as needed. Do not exceed 12 tablets in a 24 hour period. Avoid taking more than 3 grams (3000 mg) of Tylenol per day. This includes any other sources of acetaminophen you may take on a regular basis. - Regular strength (200 mg/tab) Advil (ibuprofen) 1-2 tabs every 4-6 hours as needed. Do not exceed a dose of 3200 mg per day. Please keep your follow-up appointment with the urologist. Return to the Emergency Department if your symptoms persist despite the treatment plan outlined above or if you develop the following symptoms: intractable pain, fever, chills, or large amounts of blood in your urine. Problem Qualifiers
[2018-02-15 02:13] VITALS: BP 120/76; PULSE 77; O2SAT 97
--- NOTE | 2018-02-15 06:58 | DIAGNOSTIC IMAGING REPORT ---
(BAYRON/BLAD)RETROPERITON COMP HISTORY: 43 years-old Female L flank pain acute left-sided flank pain COMPARISON: Renal ultrasound 02/04/2018, CT 02/11/2018 TECHNIQUE: Multiple real-time sonographic images of the kidneys and bladder were obtained assessing grayscale appearance and color flow FINDINGS: Right kidney measures 10.0 x 4.2 x 5.1 cm and is unremarkable without renal calculi, hydronephrosis or suspicious mass lesions. The left kidney measures 10.6 x 4.9 x 4.3 cm and is also unremarkable without renal calculi, hydronephrosis or suspicious mass lesions. Bladder is partially decompressed. Ureteral jets not identified. IMPRESSION: 1. Unremarkable sonographic appearance of the kidneys without renal calculi or hydronephrosis. 2. Partially decompressed urinary bladder. The above report was generated using voice recognition software. It may contain grammatical, syntax or spelling errors. Electronically signed by: eK Treadwell M.D. 02/15/2018 6:57 AM Dictated Date/Time: 02/15/2018 6:55 AM
[2018-02-17] MEDS ORDERED: ONDA4TAB46 PO (08:29)
[2018-02-17] MEDS ORDERED: OXYC-90 PO (08:29)
[2018-02-18] MEDS ORDERED: TAMS0.4C38 PO (11:31)
[2018-02-18] MEDS ORDERED: PHEN-775 PO (11:31)
[2018-02-18] MEDS ORDERED: OXYC-737 PO (11:31)
[2018-02-18] MEDS ORDERED: CIPR-255 PO (11:31)
== END 2018-02-15 02:17 | disposition home or self-care (01) ==
LOC: C.EDB 22:00 → C.EDA 02-15 02:17
DX: R10.84 Generalized abdominal pain (principal); N23 Unspecified renal colic